=== PATIENT | female | born 1965 | race Caucasian/White ===

== ENCOUNTER → 2023-01-09 | Outpatient (CLI) | payer OTHER, SELFPAY ==
[2023-01-09 09:40] LABS: Erythrocyte Sedimentation Rate 1 mm/hr (0-30)
[2023-01-09 10:11] LABS: CRP < 2.90 mg/L (0.0-3.0)
== END | disposition home or self-care (01) ==
LOC: LAB 08:48
PROVIDERS: PCP Family Medicine
DX: H47.011 Ischemic optic neuropathy, right eye (principal)
CPT/HCPCS: 36415; 85652; 86140

== ENCOUNTER → 2025-02-06 | Outpatient (CLI) | payer BC, SELFPAY ==
[2025-02-06 17:55] LABS: Mucous, Urine 0 SEEN /hpf (<or=2+)
--- OUTSIDE RECORDS SUMMARY | 2025-02-06 17:56 | XMS RPT_ITS | CCD ---
Author Organization [facility] Care Team Providers Care Operator Weapon Locating Radar Name Role Phone Assessment, Health Risk Attending Unavaila ble Care Physician, No Primary Primary Care Unava ilable Assessment, Health Risk Attending Unavaila ble Care Physician, No Primary Primary Care Unava ilable Matteo Medel MD Primary Care Provider Matteo Medel MD Primary Care Provider Rchokristian INVESTMENT COUNSELOR.Rachelle SMITH Unavailable Domingo INVESTMENT COUNSELOR.Carlos SMITH Unavailable Tannhof INVESTMENT COUNSELOR.Rachelle SMITH Unavailable MATTEO MEDEL Primary Care Unavailable KRISSY MAHMOOD Attending Unavailable MATTEO MEDEL Primary Care Unavailable ILIANA CLARK Attending Unavailable SELF Referring Unavailable MATTEO MEDEL Primary Care Unavailable ILIANA CLARK Referring Unavailable MATTEO MEDEL Referring Unavailable MATTEO MEDEL Primary Care Unavailable GENESIS MENDES Referring Unavailable MATTEO MEDEL Attending Unavailable MATTEO MEDEL Primary Care Unavailable Allergies Allergy Classification Reported Allergen(s) Allergy Type Date of Onset Reaction(s) Facility (15 sources) Sulfonamides (Antibiotic); Translations: [SULFA (SULFONAMIDE ANTIBIOTICS)] Drug Allergy 03-06-2005 [facility] Work Phone: Medications Current Medications Medication Drug Class(es) Dates Sig (Normalized) Sig (Original) cephalexin 500 mg oral capsule (3 sources) Cephalosporin Antibacterial Start: 08-06-2024 End: 08-11-2024 take 1 capsule by mouth twice daily cephALEXin (KEFLEX) 500 mg capsule Take 1 capsule by mouth two times a day for 5 days. 10 capsule 08/06/2024 08/11/2024 Active Start: 11-25-2023 End: 12-02-2023 take 1 capsule by mouth twice daily cephALEXin (KEFLEX) 500 mg capsule Take 1 capsule by mouth two times a day for 7 days. 14 capsule 11/25/2023 12/02/2023 Active Loratadine (14 sources) LORATADINE ORAL Take by mouth. Active LORATADINE ORAL Take by mouth. 0 Active Comment on above: Take by mouth. 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 21 tablet 0 12/05/2022 12/11/2022 Active Comment on above: Follow dosing instru ctions, take with food. MULTIVITAMIN TAB (14 sources) Start: 2004 MULTIVITAMIN TAB Take one(1) tablet daily. 0 03/06/2005 Active Comment on above: Take one(1) tablet d aily. valACYclovir 500 mg oral tablet (6 sources) Herpesvirus Nucleoside Analog DNA Polymerase Inhibitor, Herpes Simplex Virus Nucleoside Analog DNA Polymerase Inhibitor, Herpes Zoster Virus Nucleoside Analog DNA Polymerase Inhibitor Start: 2022 End: 2024 take 1 tablet by mouth once daily valACYclovir (VALTREX) 500 mg tablet Indications: History of herpes genitalis Take 1 tablet by mouth once daily. 7 tablet 5 04/24/2023 04/23/2024 Active Comment on above: Take 1 tablet by jake th once daily. Completed/Discontinued Medications Medication Drug Class(es) Dates Sig (Normalized) Sig (Original) nitrofurantoin, macrocrystals 25 mg / nitrofurantoin, monohydrate 75 mg oral capsule (2 sources) Nitrofuran Antibacterial Start: 11-23-2023 End: 11-28-2023 take 1 capsule by mouth twice daily nitrofurantoin monohydrate and macrocrystal (MACROBID) 100 mg capsule Indications: Acute UTI Take 1 capsule by mouth two times a day for 5 days. 10 capsule 11/23/2023 11/25/2023 Discontinued Problems Active Problems Problem Classification Problem Date Documented Da te Episodic/Chronic Genitourinary symptoms and ill-defined conditions (1 source) Urgent desire to urinate; Translations: [Urgency of urination] 11-23-2023 Episodic Nonmalignant breast conditions (1 source) Breast finding ; Translations: [Dense breast tissue] 04-29-2024 Episodic Other circulatory disease (1 source) Elevated blood-pressure reading without diagnosis of hypertension; Translations: [Elevated blood-pressure reading, without diagnosis of hypertension] 12-05-2022 Episodic Other eye disorders (2 sources) 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; Translations: [Ischemic optic neuropathy, right eye] 12-05-2022 Chronic Other hereditary and degenerative nervous system conditions (1 source) Restless legs; Translations: [Restless legs syndrome] 12-16-2024 Chronic Other infections; including parasitic (2 sources) History of sexually transmitted disease; Translations: [Personal history of other infectious and parasitic diseases] 12-05-2022 Episodic Other screening for suspected conditions (not mental disorders or infectious disease) (7 sources) Patient encounter status; Translations: [Encounter for screening for lipoid disorders] 12-06-2023 Episodic Other upper respiratory disease (1 source) Seasonal allergy; Translations: [Other seasonal allergic rhinitis] 12-06-2023 Chronic Other upper respiratory disease (1 source) Seasonal allergic rhinitis; Translations: [Other seasonal allergic rhinitis] 12-16-2024 Chronic Residual codes; unclassified (1 source) Insomnia; Translations: [Insomnia, unspecified] 12-16-2024 Episodic Screening and history of mental health and substance abuse codes (2 sources) Encounter for screening for depression; Translations: [Encounter for screening examination for other mental health and behavioral disorders] Onset: 12-16-2024 Episodic Past or Other Problems Problem Classification Problem Date Documented Da te Episodic/Chronic Cancer of cervix (15 sources) Atypical squamous cells of undetermined significance on cervical Papanicolaou smear; Translations: [Atypical squamous cells of undetermined significance on cytologic smear of cervix (ASC-US)] Onset: 01-28-2018 01-29-2018 Episodic Other female genital disorders (14 sources) Lesion of cervix; Translations: [Noninflammatory disorder of cervix uteri, unspecified] Onset: 01-16-2018 01-16-2018 Episodic Urinary tract infections (3 sources) Acute urinary tract infection; Translations: [Urinary tract infection, site not specified] Onset: 08-06-2024 11-23-2023 Episodic Results Test Name Value Interpretation Reference Range Marilu Lind 12-16-2024 [facility] Office Visit (FAMPWS ) VAISHALI MCGEE ([id number]) 1965 F Date Time Provider Department 12/16/24 8:00 AM MATTEO MEDEL [facility] During your visit today, we recorded the following information about you: Pulse Respiration Blood pressure Weight 78/minute 16/minute 138/80 50.9 kg Height 1.422 m Matteo Medel MD 12/16/2024 9:04 AM Signed Chief Complaint Patient presents with: Physical Recording using Exchangery software for draft documentation of the visit was discussed with the patient/authorized scheduling representative; all questions welcomed and answered. Patient/authorized scheduling representative agreed to proceed HPI Vaishali Mcgee is a 59-year-old female presenting for Annual Wellness Visit. Vaishali denies any current health concerns. She reports reviewing her recent lab results and noting that some values were slightly above or below the normal range, but she does not find them concerning. She maintains a healthy diet, particularly in the summer when she has access to fresh produce from farmers' markets and her own garden. She is physically active, engaging in yard work and walking regularly. She has a membership at a local high school track and frequents [facility] and the [employer] for walking. She also participates in an exercise class on evenings. Vaishali retired after 34-35 years of service and now has more time for activities she enjoys, such as cooking and traveling. She recently visited her brothers in [place]. Her 28-year-old son has moved back home, which she appreciates for the help he provides around the house. She denies any chest pain, dyspnea, or breathing problems. She reports occasional insomnia and restless legs, which she attributes to her age and hormonal changes. She takes extra magnesium to help with these issues and has been eating bananas and cantaloupe to maintain her electrolyte balance. She denies any recent flu or colds, attributing her good health to taking elderberry, vitamin C, and practicing good hygiene. She manages seasonal allergies with loratadine. She declines flu and shingles vaccines. Declined Pneumonia vaccine and Flu vaccine. No bowel, Gi, or urinary concerns. Follows with [facility]. No chest pains, dizziness, or Shortness of Breath. Does not take any medications other than occ OTC supplements. Checks BP at home with readings running 108/71, 116/70/ Pulse in 70s. Past medical history, appointments, medications, allergies reviewed. 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 MULTIVITAMIN TAB Take one(1) tablet daily. No current facility-administered medications on file prior to visit. Social History SOCIAL HISTORY[1] EXAM: BP 138/80 Pulse 78 Resp 16 Ht 142.2 cm (4' 8") Wt 50.9 kg (112 lb 3.4 oz) LMP 07/09/2010 BMI 25.16 kg/m? General Appearance: Well appearing, alert, in no acute distress, well-hydrated, well nourished.. Lungs: Lungs clear to auscultation. No wheezing, rhonchi, rales.. Heart: RRR without murmur, gallop, or rubs. No ectopy. Health Maintenance List Shingrix Vaccine(1 of 2) Never done Depression Screening due on 12/05/2024 Anxiety Screening due on 12/05/2024 Mammogram Screening due on 04/29/2025 Influenza Vaccine(1) due on 09/29/2025 Pneumococcal Vaccine: 50+(1 of 1 - PCV) due on 12/16/2025 DTaP,Tdap,Td Vaccine(6 - Td or Tdap) due on 09/25/2027 Diabetes Screening due on 12/12/2027 Colorectal Cancer Screening due on 02/12/2028 Cervical Cancer Screening due on 04/24/2028 Lipid Screening due on 12/11/2029 RSV Vaccine(1 - 1-dose 75+ series) due on 2038 Hepatitis C Screening Completed HIV Screening Completed Data reviewed Appointment on 12/11/2024 Component Date Value Protein, To (more content not included)... Normal [facility] Comprehensive metabolic 2000 panelon 12-11-2024 Albumin [Mass/Vol] 4.3 g/dL Normal 3.9-4.9 [facility] Comment on above: Order Comment: Speci men Type: BLOOD SPECIMEN Ordering Facility: [facility] Address: [address] [place] [address] Performed By: #### 2 4331-1, 07838-0 #### [facility] CLIA [id number] [address] [place] [address] [place] ALP [Catalytic activity/Vol] 71 U/L Normal 34-123 [facility] Comment on above: Order Comment: Speci men Type: BLOOD SPECIMEN Ordering Facility: [facility] Address: [address] [place] [address] Performed By: #### 2 4331-1, 83377-7 #### [facility] CLIA [id number] [address] [place] [address] [place] ALT [Catalytic activity/Vol] 12 U/L Normal 7-38 [facility] Comment on above: Order Comment: Speci men Type: BLOOD SPECIMEN Ordering Facility: [facility] Address: [address] [place] [address] Performed By: #### 2 4331-1, 37118-5 #### [facility] CLIA [id number] [address] [place] [address] [place] Anion gap [Moles/Vol] 12 mmol/L Normal 8-15 [facility] Comment on above: Order Comment: Speci men Type: BLOOD SPECIMEN Ordering Facility: [facility] Address: [address] [place] [address] Performed By: #### 2 4331-1, 93426-0 #### [facility] CLIA [id number] [address] [place] [address] [place] AST [Catalytic activity/Vol] 18 U/L Normal 13-35 [facility] Comment on above: Order Comment: Speci men Type: BLOOD SPECIMEN Ordering Facility: [facility] Address: [address] [place] [address] Performed By: #### 2 4331-1, 22260-4 #### [facility] CLIA [id number] [address] [place] [address] [place] Bilirubin [Mass/Vol] 0.6 mg/dL Normal 0.2-1.3 [facility] Comment on above: Order Comment: Speci men Type: BLOOD SPECIMEN Ordering Facility: [facility] Address: [address] [place] [address] Performed By: #### 2 4331-1, 77594-6 #### [facility] CLIA [id number] [address] [place] [address] [place] Calcium [Mass/Vol] 9.2 mg/dL Normal 8.5-10.2 [facility] Comment on above: Order Comment: Speci men Type: BLOOD SPECIMEN Ordering Facility: [facility] Address: [address] [place] [address] Performed By: #### 2 4331-1, 86958-5 #### [facility] CLIA [id number] [address] [place], [place] [address] [place] Chloride [Moles/Vol] 96 mmol/L Low 98-107 [facility] Comment on above: Order Comment: Speci men Type: BLOOD SPECIMEN Ordering Facility: [facility] Address: [address] [place] [address] Performed By: #### 2 4331-1, 83314-9 #### [facility] CLIA [id number] [address] [place] [address] [place] CO2 [Moles/Vol] 23 mmol/L Normal 22-30 [facility] Comment on above: Order Comment: Speci men Type: BLOOD SPECIMEN Ordering Facility: [facility] Address: [address] [place] [address] Performed By: #### 2 4331-1, 52589-1 #### [facility] CLIA [id number] [address] [place] [address] [place] Creatinine [Mass/Vol] 0.76 mg/dL Normal 0.58-0.96 [facility] Comment on above: Order Comment: Speci men Type: BLOOD SPECIMEN Ordering Facility: [facility] Address: [address] [place] [address] Performed By: #### 2 4331-1, 89159-7 #### [facility] CLIA [id number] [address] [place] [address] [place] eGFRcr SerPlBld CKD-EPI 2020 89 mL/min/1.73m??? Normal >=60 [facility] Comment on above: Order Comment: Speci men Type: BLOOD SPECIMEN Ordering Facility: [facility] Address: [address] [place] [address] Result Comment: Rhonda mated Glomerular Filtration Rate (eGFR) is calculated using the 2020 CKD-EPI creatinine equation. This equation utilizes serum creatinine, sex, and age as parameters. The creatinine assay has traceable calibration to isotope dilution-mass spectrometry. Refer to KDIGO guidelines for clinical interpretation. In patients with unstable renal function, e.g. those with acute kidney injury, the eGFR may not accurately reflect actual GFR. Performed By: #### 2 4331-1, 99323-6 #### [facility] CLIA [id number] [address] [place] [address] [place] Glucose [Mass/Vol] 72 mg/dL Low 74-99 [facility] Comment on above: Order Comment: Speci men Type: BLOOD SPECIMEN Ordering Facility: [facility] Address: [address] [place] [address] Result Comment: The [place] Diabetes Association (ADA) provides guidance for cutoff values for fasting glucose and random glucose. The ADA defines fasting as no caloric intake for at least 8 hours. Fasting plasma glucose results between 100 to 125 mg/dL indicate increased risk for diabetes (prediabetes). Fasting plasma glucose results greater than or equal to 126 mg/dL meet the criteria for diagnosis of diabetes. In the absence of unequivocal hyperglycemia, results should be confirmed by repeat testing. In a patient with classic symptoms of hyperglycemia or hyperglycemic crisis, random plasma glucose results greater than or equal to 200 mg/dL meet the criteria for diagnosis of diabetes. Reference: Standards of Medical Care in Diabetes 2016, [place] Diabetes Association. Diabetes Care. 2016.39(Suppl 1). Performed By: #### 2 4331-1, 72131-3 #### [facility] CLIA [id number] [address] [place] [address] [place] Potassium [Moles/Vol] 3.8 mmol/L Normal 3.7-5.1 [facility] Comment on above: Order Comment: Speci men Type: BLOOD SPECIMEN Ordering Facility: [facility] Address: [address] [place] [address] Performed By: #### 2 4331-, #### [facility] CLIA [id number] [address] [place] [address] [place] Protein [Mass/Vol] 6.6 g/dL Normal 6.3-8.0 [facility] Comment on above: Order Comment: Miladi men Type: BLOOD SPECIMEN Ordering Facility: [facility] Address: [address] [place] [address] Performed By: #### 2 433-1, #### [facility] CLIA [id number] [address] [place], [place] [address] [place] Sodium [Moles/Vol] 131 mmol/L Low 136-144 [facility] Comment on above: Order Comment: Speci men Type: BLOOD SPECIMEN Ordering Facility: [facility] Address: [address] [place] [address] Performed By: #### 2 4331-1, 42912-1 #### [facility] CLIA [id number] [address] [place], [place] [address] [place] Urea nitrogen [Mass/Vol] 10 mg/dL Normal 7-21 [facility] Comment on above: Order Comment: Speci men Type: BLOOD SPECIMEN Ordering Facility: [facility] Address: [address] [place] [address] Performed By: #### 2 4331-1, #### [facility] CLIA [id number] [address] [place] [address] [place] Lipid 1996 panelon 5 Cholesterol [Mass/Vol] 198 mg/dL Normal <200 [facility] Comment on above: Order Comment: Speci men Type: BLOOD SPECIMEN Ordering Facility: [facility] Address: [address] [place] [address] Result Comment: <200 mg/dL, Desirable 200-239 mg/dL, Borderline high >239 mg/dL, High Performed By: #### 2 4331-1, 74368-3 #### [facility] CLIA [id number] [address] [place], [place] [address] [place] Cholesterol in HDL [Mass/Vol] 63 mg/dL Normal >39 [facility] Comment on above: Order Comment: Speci men Type: BLOOD SPECIMEN Ordering Facility: [facility] Address: [address] [place] [address] Result Comment: 40-5 9 mg/dL, Acceptable >59 mg/dL, High: Negative risk factor for coronary heart disease <40 mg/dL, Low: Positive risk factor for coronary heart disease Performed By: #### 2 4331-1, 19508-0 #### [facility] CLIA [id number] [address] [place] [address] [place] Cholesterol in LDL [Mass/Vol] 122 mg/dL High <100 [facility] Comment on above: Order Comment: Nikky desai Type: BLOOD SPECIMEN Ordering Facility: [facility] Address: [address] [place] [address] Result Comment: <100 mg/dL, Optimal 100-129 mg/dL, Near optimal/above optimal 130-159 mg/dL, Borderline high 160-189 mg/dL, High >189 mg/dL, Very high Secondary prevention optimal LDL Cholesterol levels are recommended to be <70 mg/dL LDL cholesterol is calculated using the Petersen-NIH equation. Performed By: #### 2 4331-1, 73942-0 #### [facility] CLIA [id number] [address] [place] [address] [place] [facility] Cholesterol in LDL/Cholesterol in HDL [Mass ratio] 1.94 {ratio} Normal <2.54 [facility] Comment on above: Order Comment: Nikky desai Type: BLOOD SPECIMEN Ordering Facility: [facility] Address: [address] [place] [address] Result Comment: Refe rence: 1. National Cholesterol Education Program ATP III Guideline At-A-Glance Quick Desk Reference: National Heart, Lung, and Blood [place]. National Institutes of Health. 2001: NIH Publication No. 01-3305. 2. An International Atherosclerosis Society position paper: global recommendations for the management of dyslipidemia: executive summary, Atherosclerosis. 2014: 232(2):410-413. Performed By: #### 2 4331-1, 48320-6 #### [facility] CLIA [id number] [address] [place] [address] [place] Cholesterol in VLDL [Mass/Vol] 13 mg/dL Normal <30 [facility] Comment on above: Order Comment: Nikky desai Type: BLOOD SPECIMEN Ordering Facility: [facility] Address: [address] [id number] Performed By: #### 2 4331-1, 87520-4 #### [facility] CLIA [id number] [address] [place] [address] [place] Cholesterol non HDL [Mass/Vol] 135 mg/dL High <130 [facility] Comment on above: Order Comment: Speci men Type: BLOOD SPECIMEN Ordering Facility: [facility] Address: [address] [place] [address] Result Comment: <130 mg/dL, Optimal 130-159 mg/dL, Near optimal/above optimal 160-189 mg/dL, Borderline high 190-219 mg/dL, High >219 mg/dL, Very high Secondary prevention optimal non HDL Cholesterol levels are recommended to be <100 mg/dL Performed By: #### 2 4331-1, #### [facility] CLIA [id number] [address] [place] [address] [place] Cholesterol.total/Ch olesterol in HDL [Mass ratio] 3.14 {ratio} Normal <5.10 [facility] Comment on above: Order Comment: Speci men Type: BLOOD SPECIMEN Ordering Facility: [facility] Address: [address] [place] [address] Performed By: #### 2 4331-1, #### [facility] CLIA [id number] [address] [place] [address] [place] FASTING TIME 12 hrs Normal [facility] Comment on above: Order Comment: Speci men Type: BLOOD SPECIMEN Ordering Facility: [facility] Address: [address] [place], [place] [id number] Performed By: #### 2 4331-1, #### [facility] CLIA [id number] [address] [place] [address] [place] Triglyceride [Mass/Vol] 74 mg/dL Normal <150 [facility] Comment on above: Order Comment: Speci men Type: BLOOD SPECIMEN Ordering Facility: [facility] Address: [address] [place] [address] Result Comment: <150 mg/dL, Normal 150-199 mg/dL, Borderline high 200-499 mg/dL, High >499 mg/dL, Very high Performed By: #### 2 4331-1, 76302-3 #### [facility] CLIA [id number] [address] [place] [address] OF [facility] Kiara 12-04-2024 [facility] ([facility]) VAISHALI MCGEE ([id number]) 1965 F Date Time Provider Department 12/04/24 MATTEO MEDEL [facility] During your visit today, we recorded the following information about you: Fabiola Shipman RN 12/04/2024 11:25 AM Signed Patient calls and states that she has physical scheduled with provider on 12/16/2024. Patient asking if provider want to place lab orders and if so when should labs be done? Please review and advise, ERROL Espinal Jesse, APRN.SARAH 12/05/2024 7:42 AM Signed Fasting labs ordered. Carlos Lane APRN.Janeen Thompson LPN 12/05/2024 9:05 AM Signed Patient notified. Allergies As of Date: 12/04/2024 Noted Allergy Reaction SULFA (SULFONAMIDE ANTIBIOTICS) 03/06/2005 4 - Hives Date Reviewed: 08/06/2024 Reviewed by: Priscila Sosa MA - Fully Assessed Reason for Visit: Lab Orders [1688] Primary Visit Diagnosis:Wellness examination [Z00.00] Order(s):COMPREHENSIV E METABOLIC PANEL [SQCMP] Order #: [id number] FUTURE LIPID PANEL, FASTING [SQLIPB] Order #: [id number] FUTURE Prescriptions as of 12/05/2024 - LORATADINE ORAL Take by mouth. - MULTIVITAMIN TAB Take one(1) tablet daily. Problem List As Of Date 12/04/2024 Noted Resolved Lesion of cervix [N88.9] 01/16/2018 Atypical squamous cells of undetermined signifi*01/28/2018 Encounter Status:Closed by JANEEN VAUGHAN on 12/05/24 [facility] Bacteria Ur Culton Bacteria identified Cx Nom (U) ORGANISM ID: 1 10,000 -<50,000 CFU/ml Escherichia coli ORGANISM ID: 1 (ESCHERICHIA COLI) ------ ANTIBIOTIC INTERPRETATION KARYNA STATUS REFERENCE RANGE ------ Ampicillin S <=2 F Susceptible <=8 , Intermediate >8 , Resistant >16 Cefazolin S <=4 F Susceptible 0-16 , Intermediate <0 or >16 , Resistant >16 For uncomplicated urinary tract infections, cefazolin results can be used to predict susceptibility or resistance to cephalexin. Ceftriaxone S <=1 F Susceptible <=1 , Intermediate >1 , Resistant >=4 Cefepime S <=1 F Susceptible <=2 , Susceptible-Dose Dependent >2 , Resistant >=16 Ertapenem S <=0.5 F Susceptible <=0.5 , Intermediate >.5 , Resistant >1 Meropenem S <=0.25 F Susceptible <=1 , Intermediate >1 , Resistant >2 Ampicillin/Sulbact S <=2 F Susceptible <=8 , Intermediate >8 , Resistant >16 Piperacillin/Tazobac S <=4 F Susceptible <16 , Susceptible-Dose Dependent >=16 , Resistant >=32 Gentamicin S <=1 F Susceptible <=2 , Intermediate >2 , Resistant >=8 Tobramycin S <=1 F Susceptible <4 , Intermediate >=4 , Resistant >=8 Trimeth sulfameth S <=20 F Susceptible <=40 , Resistant >40 Ciprofloxacin S <=0.25 F Susceptible <0.5 , Intermediate >=.5 , Resistant >=1 Nitrofurantoin S <=16 F Susceptible <=32 , Intermediate >32 , Resistant >64 Abnormal [facility] Comment on above: Performed By: #### 6 30-4 #### [facility] CLIA [id number] [address] [place] [address] OF [facility] CNOVon 08-06-2024 CNOV Office Visit (UCWSTR ) VAISHALI MCGEE ([id number]) 1965 F Date Time Provider Department 08/06/24 2:15 PM KRISSY MAHMOOD [facility] During your visit today, we recorded the following information about you: Temperature Pulse Respiration Blood pressure 97.9 degrees 80/minute 18/minute 145/87 Weight 54.7 kg Krissy Mahmood APRN.AWNING ERECTOR 08/06/2024 3:01 PM Signed [facility] Subjective Vaishali Leodan Arely is a 59 year old female. Patient presents with: Urinary Frequency: With urgency x2 days 59 year old female with PMH presents for possible UTI Acute onset 2 to 3 days ago +burning +urgency +frequency Denies vaginal bleeding Denies vaginal discharge Denies abdominal pain Denies N/V/D Recent coitus Mehdi concerns for STI Denies using homeopathic or OTC The history is provided by the patient. No global supply chain vice president was used. UTI This is a new problem. The current episode started 2 days ago. The problem occurs every urination. The problem has not changed since onset.The quality of the pain is described as burning. The pain is at a severity of 4/10. The pain is mild. She is Sexually active. There is No history of pyelonephritis. Associated symptoms include frequency and urgency. Pertinent negatives include no chills, no sweats, no nausea, no vomiting, no discharge, no hematuria, no hesitancy, no possible and no flank pain. She has tried nothing for the symptoms. Her past medical history does not include kidney stones, single kidney, urological procedure, recurrent UTIs, urinary stasis or catheterization. 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 MULTIVITAMIN TAB Take one(1) tablet daily. cephALEXin (KEFLEX) 500 mg capsule Take 1 capsule by mouth two times a day for 5 days. FAMILY HISTORY Problem Relation Age of Onset Emphysema Mother Heart Mother No Known Problems Father Ischemic Heart Disease Paternal Grandfather Diabetes Maternal Aunt Cancer Maternal Aunt Lung Cancer Heart Maternal Aunt Diabetes Maternal Uncle Cancer Maternal Uncle Social History Tobacco Use Smoking status: Never Smokeless tobacco: Never Vaping Use Vaping status: Never Used Substance Use Topics Alcohol use: Yes Comment: occasional Drug use: No Review of Systems Constitutional: Negative for activity change, appetite change, chills and diaphoresis. Eyes: Negative for pain, discharge, redness and itching. Respiratory: Negative for apnea, cough, choking and chest tightness. Cardiovascular: Negative for chest pain, palpitations and leg swelling. Gastrointestinal: Negative for abdominal pain, diarrhea, nausea and vomiting. Genitourinary: Positive for dysuria, frequency and urgency. Negative for flank pain, hematuria and hesitancy. Musculoskeletal: Negative for arthralgias, back pain, gait problem and joint swelling. Skin: Negative for color change, pallor, rash and wound. Allergic/Immunologic: Negative for environmental allergies, food allergies and immunocompromised state. Neurological: Negative for dizziness, facial asymmetry, light-headedness and headaches. Hematological: Negative for adenopathy. Does not bruise/bleed easily. Psychiatric/Behaviora l: Negative for agitation and behavioral problems. Objective BP 145/87 Pulse 80 Temp 36.6 ?C (97.9 ?F) Resp 18 Wt 54.7 kg (120 lb 9.5 oz) LMP 07/09/2010 SpO2 100% BMI 27.04 kg/m? Physical Exam Vitals and nursing note reviewed. Constitutional: General: She is not in acute distress. Appearance: Normal appearance. She is normal weight. She is not ill-appearing, toxic-appearing or diaphoretic. HENT: Head: Normocephalic and atraumatic. Right Ear: Ear canal and external ear normal. Left Ear: Ear canal and external ear normal. Nose: Nose normal. No congestion or rhinorrhea. Mouth/Throat: Mouth: Mucous membranes are moist. Pharynx: No oropharyngeal exudate or posterior oropharyngeal erythema. Eyes: General: Right eye: No discharge. Left eye: No discharge. Extraocular Movements: Extraocular movements intact. Conjunctiva/sclera: Conjunctivae normal. Pupils: Pupils are equal, round, and reactive to light. Cardiovascular: Rate and Rhythm: Normal r (more content not included)... Normal [facility] UA DIP, URINE (POC)on 2024 BILIRUBIN UA (POCT) Negative Negative [facility] CLARITY UA (POCT) Clear [facility] COLOR UA (POCT) Yellow [facility] GLUCOSE UA (POCT) Negative Negative mg/dL [facility] Hemoglobin Ql (U) Trace-intact Abnormal Negative [facility] Interpretation and review of laboratory results Abnormal [facility] KETONE UA (POCT) Negative Negative mg/dL [facility] LEUKOCYTES UA (POCT) Trace Abnormal Negative [facility] NITRITE UA (POCT) Negative Negative [facility] PH UA (POCT) 6.5 4.5 - 8.0 [facility] Protein Ql (U) Negative Negative mg/dL [facility] SPECIFIC GRAVITY UA (POCT) <=1.005 Abnormal 1.005 - 1.030 [facility] UROBILINOGEN UA (POCT) 0.2 Normal E.U./dL [facility] Location:[facility], [address] [place] [address], [place], [place], [id number] [place] [address] POINT OF CARE [facility] CNOVon 04-29-2024 CNOV Office Visit (OBGYWM ) VAISHALI MCGEE ([id number]) 1965 F Date Time Provider Department 04/29/24 9:30 AM ILIANA CLARK OBGYWPoli During your visit today, we recorded the following information about you: Blood pressure Weight Height 130/78 53.5 kg 1.422 m Iliana Clark APRN.CNP 04/29/2024 1:11 PM Signed Director Of Product Marketing offered: Patient declines. Tom is a 59 year old who presents for an annual gynecologic exam without complaints. Postmenopausal: Yes since age 51 HRT use: No Menses: no menses - postmenopausal Sexually active: Yes HPV vaccine: No Last pap smear: 04/24/2023 normal HPV: negative History of abnormal pap: Yes, Yes, 2018 - ASCUS, HPV neg cryo 2018 - benign colpo Dr Jovany Leigh: Yes: in her 20's Last mammogram: 2024 pending History of abnormal mammogram: No History of STDS: HSV possibly 2 outbreak past 2 years - only had a couple of lesions Patient concerns for STD exposure: No Time with current partner: 7 years Pain with intercourse: No Postcoital bleeding: No Hot flashes: Yes, random Documentation from previous visit of 04/24/2023 was copied and pasted, documentation has been reviewed and edited as necessary for today's visit. 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 RPR 1ST INGUN HRNA AGE 3 YRS/> INCARCERATED UNSPECIFIED ORAL SURGERY PROCEDURE, BY REPORT Angelica Teeth x2 Removed FAMILY HISTORY Problem Relation Age of Onset Emphysema Mother Heart Mother No Known Problems Father Ischemic Heart Disease Paternal Grandfather Diabetes Maternal Aunt Cancer Maternal Aunt Lung Cancer Heart Maternal Aunt Diabetes Maternal Uncle Cancer Maternal Uncle SOCIAL HISTORY Social History Tobacco Use Smoking status: Never Smokeless tobacco: Never Vaping Use Vaping status: Never Used Substance Use Topics Alcohol use: Yes Comment: occasional Drug use: No REVIEW OF SYSTEMS Abdomen: No abdominal pain, nausea, vomiting, diarrhea, or constipation. No bloating, early satiety, indigestion, or increased flatulence. Bladder: No dysuria, gross hematuria, urinary frequency, urinary urgency, or incontinence Breast: No breast lumps, nipple d/c, overlying skin changes, redness or skin retraction Allergies and current medication updated:Yes SENSITIVE EXAM: The sensitive examination was discussed with the Patient or Patient's Authorized Senior Strategy Manager. As applicable, any other physician, advance practice provider, medical student, or other health professional student that will be observing or involved in the sensitive examination for educational or training purposes was discussed with the Patient or Authorized Senior Strategy Manager. The Patient or Authorized Senior Strategy Manager has agreed to proceed with the sensitive examination. (Sensitive examination includes inspection and/or palpation of the breasts, pelvis, prostate and anorectal regions). EXAM: BP 130/78 Ht 4' 8" (1.42m) Wt 118 lb (53.5kg) LMP 07/09/2010 BMI 26.47 kg/(m2). GENERAL: pleasant, female in no apparent distress HEENT: Normocephalic, atraumatic, mucus membranes moist, and no lesions NECK: Supple, full range of motion, no adenopathy, and thyroid normal DERMATOLOGY: Normal, without lesions, non-icteric, and non-hirsute BREAST: soft, non-tender, symmetric, no dominant mass, normal nipple-areolar complex, no lymphadenopathy, and no nipple discharge CHEST: Normal inspiratory effort ABDOMEN: soft, non-tender, and no masses PELVIC: external genitalia normal, normal Bartholin's glands, urethra, Norge's glands, no vulvar lesions, good vaginal support, physiologic discharge present, normal appearing perineal body and perianal region, small raised friable area to right cervix as per usual - colpo benign 2018 and subsequent Pap normal. BIMANUAL: uterus normal size, shape and consistency, no adnexal masses, and non-tender RECTOVAGINAL: deferred. NEURO: alert and oriented x3,exam grossly non-focal EXTREMITIES: normal ASSESSMENT/PLAN: 1) Health maintenance: Pap/HPV up to date. HPV screening due 2026 Mammogram ordered Mammogram up to date Nutrition, exercise and routine health mainte (more content not included)... Normal [facility] MANNY SCREENING W TOMOon 04-29 MANNY SCREENING W CHRIS * * *Final Report* * * DATE OF EXAM: Apr 29 2024 9:14AM [id number] - MANNY SCREENING W CHRIS / PROCEDURE REASON: multiple diagnoses * * * * Physician Interpretation * * * * RESULT: [address] [address] [place] [address] #[id number] - MANNY SCREENING W CHRIS HISTORY: Patient is 59 years old and is seen for screening and is asymptomatic in both breasts. Patient states no personal history of breast cancer. Patient states no personal history of other cancers. COMPARISON STUDIES: The present examination has been compared to prior imaging studies dated 01/16/2018 (mammogram), 10/20/2019 (mammogram), 05/12/2021 (mammogram) and 04/24/2023 (mammogram). MAMMOGRAM TECHNIQUE: The study was acquired using full field digital technology and interpreted from soft copy. Digital Breast Tomosynthesis (DBT) images were obtained and used to assist in the interpretation of this examination. MAMMOGRAM FINDINGS: There are scattered areas of fibroglandular density. No suspicious masses, calcifications or other abnormalities are seen in either breast. There are no significant interval changes. IMPRESSION: There is no mammographic evidence of malignancy in either breast. Routine screening mammogram is recommended. Annual mammogram will be due in 1 year. BI-RADS Category 1: Negative RISK: Based on the Tyrer-Cuzick (TC) risk assessment model, this patient has a 6.0% lifetime risk of developing breast cancer, meaning they are at average risk for developing breast cancer. However, this is only an estimate based on available history provided on the patient's questionnaire. We encourage all patients to talk with their providers about these results, further recommendations for managing breast health, and appropriate supplemental screening options if the patient has dense breast tissue. Interpreting Radiologist: Genesis Palumbo M.D. Resident/Fellow: Fern Poole D.O. Electronically signed on: 04/30/2024 Property Management Assistant: GERALD Transcrijulio cesar Date/Time: Apr 29 2024 8:47A Dictated by: FERN POOLE DO This examination was interpreted and the report reviewed and electronically signed by: GENESIS PALUMBO MD on Apr 30 2024 1:16PM EST [id number] Normal [facility] UA DIP, URINE (POC)on 2023 BILIRUBIN UA (POCT) Negative Negative [facility] CLARITY UA (POCT) Cloudy [facility] COLOR UA (POCT) Other [facility] GLUCOSE UA (POCT) Negative Negative mg/dL [facility] Hemoglobin Ql (U) Large Abnormal Negative [facility] Interpretation and review of laboratory results Abnormal [facility] KETONE UA (POCT) Negative Negative mg/dL [facility] LEUKOCYTES UA (POCT) Small Abnormal Negative [facility] NITRITE UA (POCT) Negative Negative [facility] PH UA (POCT) 7.0 4.5 - 8.0 [facility] Protein Ql (U) 30 mg/dL Abnormal Negative [facility] SPECIFIC GRAVITY UA (POCT) 1.015 1.005 - 1.030 [facility] UROBILINOGEN UA (POCT) 0.2 Normal E.U./dL [facility] Location:[address], [place], [place], [id number] [place] [address] POINT OF CARE [facility] Glucoseon 09-28-2022 Glucose [Mass/Vol] 91 mg/dL Normal 74-106 [facility] Comment on above: Performed By: #### L 501.0100, L500.4100 #### [facility] [address] [place], [address] Lipid Profileon 09-28-2022 Cholesterol [Mass/Vol] 167 mg/dL Normal 200 [facility] Comment on above: Result Comment: <200 mg/dL Desirable 200-240 mg/dL Borderline >240 mg/dL High Risk Performed By: #### L 501.0100, L500.4100 #### [facility] [address] [place], [address] Cholesterol in HDL [Mass/Vol] 62 mg/dL Normal [facility] Comment on above: Result Comment: The drugs N-Acetylcysteine and Metamizole may falsely depress this assay. Reference Range HDL <40 mg/dL Low HDL Cholesterol HDL >or= 60 mg/dL High HDL Cholesterol Performed By: #### L 501.0100, L500.4100 #### [facility] [address] [place], [address] Cholesterol in LDL [Mass/Vol] 88 mg/dL Normal 0-130 [facility] Comment on above: Performed By: #### L 501.0100, L500.4100 #### [facility] [address] [place], [address] Cholesterol in VLDL [Mass/Vol] 17 mg/dL Normal 5-40 [facility] Comment on above: Performed By: #### L 501.0100, L500.4100 #### [facility] [address] [place], [address] Triglyceride [Mass/Vol] 86 mg/dL Normal [facility] Comment on above: Result Comment: The drugs N-Acetylcysteine and Metamizole may falsely depress this assay. Serum Triglycerides Reference Interval Normal <150 mg/dL Borderline high 150 - 199 mg/dL High 200 - 499 mg/dL Very High > or = 500 mg/dL Performed By: #### L 501.0100, L500.4100 #### [place] [facility] [address] [place], [address] Glucoseon 10-13-2021 Glucose [Mass/Vol] 98 mg/dL Normal 74-106 [facility] Comment on above: Performed By: #### L 501.0100, L500.4100 #### [facility] [address] [place], [address] Lipid Profileon 10-13-2021 Cholesterol [Mass/Vol] 196 mg/dL Normal 200 [facility] Comment on above: Result Comment: <200 mg/dL Desirable 200-240 mg/dL Borderline >240 mg/dL High Risk Performed By: #### L 501.0100, L500.4100 #### [facility] [address] [place], [address] Cholesterol in HDL [Mass/Vol] 55 mg/dL Normal [facility] Comment on above: Result Comment: The drugs N-Acetylcysteine and Metamizole may falsely depress this assay. Reference Range HDL <40 mg/dL Low HDL Cholesterol HDL >or= 60 mg/dL High HDL Cholesterol Performed By: #### L 501.0100, L500.4100 #### [facility] [address] [place], [address] Cholesterol in LDL [Mass/Vol] 126 mg/dL Normal 0-130 [facility] Comment on above: Performed By: #### L 501.0100, L500.4100 #### [facility] [address] [place], [address] Cholesterol in VLDL [Mass/Vol] 15 mg/dL Normal 5-40 [facility] Comment on above: Performed By: #### L 501.0100, L500.4100 #### [facility] [address] [place], [address] Triglyceride [Mass/Vol] 74 mg/dL Normal [facility] Comment on above: Result Comment: The drugs N-Acetylcysteine and Metamizole may falsely depress this assay. Serum Triglycerides Reference Interval Normal <150 mg/dL Borderline high 150 - 199 mg/dL High 200 - 499 mg/dL Very High > or = 500 mg/dL Performed By: #### L 501.0100, L500.4100 #### [facility] [address] [place], [address] Vital Signs Date Time Vital Sign Value Performing Clinician Faci lity 12-16-2024 08:06-0400 Body height 142.2 cm Matteo Medel MD Work Phone: [facility] 12-16-2024 08:06-0400 Body mass index (BMI) [Ratio] 25.16 kg/m2 Matteo Medel MD Work Phone: [facility] 12-16-2024 08:06-0400 Body weight 50.9 kg Matteo Medel MD Work Phone: [facility] 12-16-2024 08:06-0400 Diastolic blood pressure 80 mm[Hg] Matteo Medel MD Work Phone: [facility] 12-16-2024 08:06-0400 Heart rate 78 /min Matteo Medel MD Work Phone: [facility] 12-16-2024 08:06-0400 Respiratory rate 16 /min Matteo Medel MD Work Phone: [facility] 12-16-2024 08:06-0400 Systolic blood pressure 138 mm[Hg] Matteo Medel MD Work Phone: [facility] 08-06-2024 14:23-0400 Body mass index (BMI) [Ratio] 27.04 kg/m2 Krissy Mahmood INVESTMENT COUNSELOR.AWNING ERECTOR Work Phone: [facility] 08-06-2024 14:23-0400 Body temperature 97.9 [degF] Krissy Mahmood INVESTMENT COUNSELOR.AWNING ERECTOR Work Phone: [facility] 08-06-2024 14:23-0400 Body weight 54.7 kg Krissy Mahmood INVESTMENT COUNSELOR.AWNING ERECTOR Work Phone: [facility] 08-06-2024 14:23-0400 Diastolic blood pressure 87 mm[Hg] Krissy Mahmood INVESTMENT COUNSELOR.AWNING ERECTOR Work Phone: [facility] 08-06-2024 14:23-0400 Heart rate 80 /min Krissy Mahmood INVESTMENT COUNSELOR.AWNING ERECTOR Work Phone: [facility] 08-06-2024 14:23-0400 Respiratory rate 18 /min Krissy Mahmood INVESTMENT COUNSELOR.AWNING ERECTOR Work Phone: [facility] 08-06-2024 14:23-0400 SaO2% (BldA) [Mass fraction] 100 % Krissy Mahmood INVESTMENT COUNSELOR.AWNING ERECTOR Work Phone: [facility] 08-06-2024 14:23-0400 Systolic blood pressure 145 mm[Hg] Krissy Mahmood INVESTMENT COUNSELOR.AWNING ERECTOR Work Phone: [facility] 04-29-2024 09:33-0500 Body height 142.2 cm Iliana Clark INVESTMENT COUNSELOR.AWNING ERECTOR Work Phone: [facility] 04-29-2024 09:33-0500 Body mass index (BMI) [Ratio] 26.46 kg/m2 Iliana Clark INVESTMENT COUNSELOR.AWNING ERECTOR Work Phone: [facility] 04-29-2024 09:33-0500 Body weight 53.52 kg Iliana Clark APRN.AWNING ERECTOR Work Phone: [facility] 04-29-2024 09:33-0500 Diastolic blood pressure 78 mm[Hg] Iliana Clark INVESTMENT COUNSELOR.AWNING ERECTOR Work Phone: [facility] 04-29-2024 09:33-0500 Systolic blood pressure 130 mm[Hg] Iliana Clark APRN.AWNING ERECTOR Work Phone: [facility] 12-06-2023 06:50-0400 Body height 142.2 cm Rachelle Bera INVESTMENT COUNSELOR.AWNING ERECTOR Work Phone: [facility] 12-06-2023 06:50-0400 Body mass index (BMI) [Ratio] 26.2 kg/m2 Rachelle Tannhof INVESTMENT COUNSELOR.AWNING ERECTOR Work Phone: [facility] 12-06-2023 06:50-0400 Body weight 53 kg Rachelle Tannhof INVESTMENT COUNSELOR.AWNING ERECTOR Work Phone: [facility] 12-06-2023 06:50-0400 Diastolic blood pressure 69 mm[Hg] Rachelle Tannhof INVESTMENT COUNSELOR.AWNING ERECTOR Work Phone: [facility] 12-06-2023 06:50-0400 Heart rate 69 /min Rachelle Tannhof INVESTMENT COUNSELOR.AWNING ERECTOR Work Phone: [facility] 12-06-2023 06:50-0400 Respiratory rate 16 /min Rachelle Tannhof INVESTMENT COUNSELOR.AWNING ERECTOR Work Phone: [facility] 12-06-2023 06:50-0400 SaO2% (BldA) [Mass fraction] 100 % Rachelle Tannhof INVESTMENT COUNSELOR.AWNING ERECTOR Work Phone: [facility] 12-06-2023 06:50-0400 Systolic blood pressure 100 mm[Hg] Rachelle Tannhof INVESTMENT COUNSELOR.AWNING ERECTOR Work Phone: [facility] 11-23-2023 13:05-0400 Body mass index (BMI) [Ratio] 26.48 kg/m2 Jai Moomaw INVESTMENT COUNSELOR.AWNING ERECTOR Work Phone: [facility] 11-23-2023 13:05-0400 Body temperature 97.39 [degF] Jai Moomaw INVESTMENT COUNSELOR.AWNING ERECTOR Work Phone: [facility] 11-23-2023 13:05-0400 Body weight 54 kg Jai Moomaw INVESTMENT COUNSELOR.AWNING ERECTOR Work Phone: [facility] 11-23-2023 13:05-0400 Diastolic blood pressure 88 mm[Hg] Jai Moomaw INVESTMENT COUNSELOR.AWNING ERECTOR Work Phone: [facility] 11-23-2023 13:05-0400 Heart rate 80 /min Jai Moomaw INVESTMENT COUNSELOR.AWNING ERECTOR Work Phone: [facility] 11-23-2023 13:05-0400 Respiratory rate 19 /min Jai Moomaw INVESTMENT COUNSELOR.AWNING ERECTOR Work Phone: [facility] 11-23-2023 13:05-0400 SaO2% (BldA) [Mass fraction] 98 % Jai Moomaw INVESTMENT COUNSELOR.AWNING ERECTOR Work Phone: [facility] 11-23-2023 13:05-0400 Systolic blood pressure 142 mm[Hg] Jai Moomaw INVESTMENT COUNSELOR.AWNING ERECTOR Work Phone: [facility] 12-05-2022 06:54-0400 Body height 141 cm Rachellesandie Tatumhof INVESTMENT COUNSELOR.AWNING ERECTOR Work Phone: [facility] 12-05-2022 06:54-0400 Body weight 53.98 kg Rachellesandie Tatumhof INVESTMENT COUNSELOR.AWNING ERECTOR Work Phone: [facility] 12-05-2022 06:54-0400 Diastolic blood pressure 90 mm[Hg] Rachelle Tatumhof INVESTMENT COUNSELOR.AWNING ERECTOR Work Phone: [facility] 12-05-2022 06:54-0400 Heart rate 67 /min Rachelle Tannhof INVESTMENT COUNSELOR.AWNING ERECTOR Work Phone: [facility] 12-05-2022 06:54-0400 Respiratory rate 16 /min Rachelle Tatumhof INVESTMENT COUNSELOR.AWNING ERECTOR Work Phone: [facility] 12-05-2022 06:54-0400 SaO2% (BldA) [Mass fraction] 100 % Rachelle Tatumhof INVESTMENT COUNSELOR.AWNING ERECTOR Work Phone: [facility] 12-05-2022 06:54-0400 Systolic blood pressure 130 mm[Hg] Rachelle Tatumhof INVESTMENT COUNSELOR.AWNING ERECTOR Work Phone: [facility] Encounters Encounter Date Encounter Type Care Provider Facility Start: 12-16-2024 End: 12-16-2024 Patient encounter status Matteo Medel MD Work Phone: [facility] Work Phone: Start: 12-16-2024 End: 12-16-2024 Periodic preventive med est patient 40-64yrs Matteo Medel MD Work Phone: [facility] Comment on above: Wellness examination (Primary Dx); Screening for depression; Encounter for screening examination for other mental health and behavioral disorders; Restless legs syndrome; Insomnia, unspecified type; Seasonal allergic rhinitis, unspecified trigger Start: 12-16-2024 End: 12-16-2024 ambulatory GENESIS PODLOGAR Facility:[facility] Start: 12-11-2024 End: 12-11-2024 ambulatory [facility] Facility:[facility] Start: 12-11-2024 Encounter for genera l adult medical examination without abnormal findings MATTEO MEDEL [facility] Start: 12-04-2024 End: 12-05-2024 Patient encounter status Matteo Medel MD Work Phone: [facility] Work Phone: Start: 12-04-2024 End: 12-05-2024 Telephone encounter Matteo Medel MD Work Phone: [facility] [place] Comment on above: Lab Orders Start: 08-07-2024 End: 08-08-2024 Follow-up encounter Krissy Mahmood APRN.AWNING ERECTOR Work Phone: [facility] Start: 08-06-2024 End: 08-06-2024 Patient encounter procedure Krissy Mahmood APRN.AWNING ERECTOR Work Phone: [facility] Comment on above: Acute cystitis with hematuria (Primary Dx) Start: 08-06-2024 End: 08-06-2024 ambulatory [facility] Facility:[facility] Start: 04-29-2024 End: 04-29-2024 Patient encounter procedure Iliana Clark APRN.AWNING ERECTOR Work Phone: OB/Gynecology Comment on above: Encounter for gyneco logical examination (general) (routine) without abnormal findings (Primary Dx); Encounter for screening mammogram for breast cancer Start: 04-29-2024 End: 04-29-2024 ambulatory [facility] Facility:[facility] Start: 04-29-2024 End: 04-29-2024 Patient encounter status Iliana Clark APRN.AWNING ERECTOR Work Phone: [facility] Start: 04-29-2024 End: 04-29-2024 Subsequent hospital visit by physician Screen Mammo [facility] Comment on above: Encounter for gyneco logical examination with abnormal finding [Z01.411] Start: 12-10-2023 End: 12-10-2023 Telephone encounter Rachelle Bear APRN.CNP Work Phone: [facility] [place] Comment on above: Results (Labs ) Start: 12-06-2023 End: 12-06-2023 Patient encounter procedure Rachelle Bear APRN.SARAH Work Phone: [facility] [place] Comment on above: Wellness examination (Primary Dx); Seasonal allergies; 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; History of herpes genitalis; Atypical squamous cells of undetermined significance (ASCUS) on Papanicolaou smear of cervix; Screening for depression; Encounter for screening examination for other mental health and behavioral disorders; Screening cholesterol level Start: 12-06-2023 End: 12-06-2023 Patient encounter status Rachelle Bear APRN.CNP Work Phone: [facility] Work Phone: Start: 11-25-2023 End: 11-25-2023 Telephone encounter Harley Stewart APRN.CNP Work Phone: [facility] Comment on above: Results Start: 11-23-2023 End: 11-23-2023 Patient encounter procedure Jai Soria APRN.CNP Work Phone: [facility] Comment on above: Urgency of urination (Primary Dx); Acute UTI Start: 12-05-2022 Telephone encounter Rachelle up APRN.CNP Work Phone: [facility] [place] Comment on above: Patient Update Start: 12-05-2022 End: 12-05-2022 Patient encounter procedure Rachelle Bear APRN.CNP Work Phone: [facility] [place] Comment on above: Wellness examination (Primary Dx); 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; Elevated blood pressure reading without diagnosis of hypertension; History of herpes genitalis Start: 12-05-2022 End: 12-05-2022 Patient encounter status Rachelle Bear INVESTMENT COUNSELOR.AWNING ERECTOR Work Phone: [facility] Work Phone: Start: 12-02-2022 ambulatory Emmanuelle Patrick RN NURS E SUBSTANCE ABUSE CLINICIAN Comment on above: Information Start: 12-01-2022 Telephone encounter Matteo mast MD Work Phone: [facility] [place] Comment on above: Patient Question Start: 09-28-2022 ambulatory Health Risk Assessment Facility:[facility] Start: 10-13-2021 ambulatory Health Risk Assessment Facility:[facility] Procedures Date Procedure Procedure Detail Performing Clinician Start: 12-16-2024 Adult depression scr eening assessment Matteo Medel MD Work Phone: Start: 12-11-2024 Lipid 1996 panel - S flor or Plasma Matteo Medel MD Work Phone: Start: 08-06-2024 Urnls dip stick/tabl et rgnt auto w/o microscopy Krissy Mahmood INVESTMENT COUNSELOR.AWNING ERECTOR Work Phone: Start: 12-06-2023 Adult depression scr eening assessment Rachelel Rcmarciakristian INVESTMENT COUNSELOR.AWNING ERECTOR Work Phone: Start: 12-06-2023 Lipid 1996 panel - S flor or Plasma Rachelle Marshallkristian INVESTMENT COUNSELOR.AWNING ERECTOR Work Phone: Start: 11-23-2023 Urnls dip stick/tabl et rgnt auto w/o microscopy Freddy Corbin MD Work Phone: Start: 05-12-2021 Mammography Emmanuelle Patrick RN Start: 10-12-2020 Lipid 1996 panel - S flor or Plasma Jai Soria INVESTMENT COUNSELOR.AWNING ERECTOR Work Phone: Start: 02-11-2018 Colonoscopy Emmanuelle Patrick RN Plan of Treatment Date Care Activity Detail Author Start: 2038 RSV Vaccine (1 - 1-d ose 75+ series) RSV Vaccine (1 - 1-dose 75+ series) [facility] Start: 12-11-2029 Lipid panel Lipid Screening [facility] Start: 12-05-2028 Lipid panel Lipid Screening [facility] Start: 04-24-2028 Screening for malign ant neoplasm of cervix Cervical Cancer Screening [facility] Start: 02-12-2028 Colonoscopy COLONOSCOPY [facility] Start: 02-12-2028 COLORECTAL CANCER SCREENING COLORECTAL CANCER SCREENING [facility] Start: 02-12-2028 Screening for malign ant neoplasm of colon [facility] Start: 12-12-2027 Diabetes Screening Diabetes Screenin g [facility] Start: 09-25-2027 Urine microalbumin profile [facility] Start: 12-05-2026 Diabetes Screening Diabetes Screenin g [facility] Start: 04-13-2026 HPV TESTING HPV TESTING [facility] Start: 04-13-2026 PAP TESTING PAP TESTING [facility] Start: 12-16-2025 Anxiety Screening Anxiety Screening [facility] Start: 12-16-2025 Depression Screening Depression Scre ening [facility] Start: 12-16-2025 Pneumococcal Vaccine : 50+ (1 of 1 - PCV) Pneumococcal Vaccine: 50+ (1 of 1 - PCV) [facility] Comment on above: Postponed from 04/14 (Declined at this time) Start: 10-12-2025 Lipid panel Lipid Screening [facility] Start: 10-12-2025 LIPID SCREEN LIPID SCREEN [facility] Start: 09-29-2025 Influenza vaccination Influenza Vacc ine (#1) [facility] Comment on above: Postponed from 12/01 (Declined at this time) Start: 05-13-2025 End: 05-13-2025 Patient encounter procedure Mammogram Comment on above: Encounter for screen ing mammogram for breast cancer [Z12.31] Annual Start: 05-01-2025 End: 05-01-2025 Patient encounter procedure Mammogram Comment on above: chris screening mammo graphy annual Start: 04-29-2025 Screening for malign ant neoplasm of breast Mammogram Screening [facility] Start: 12-16-2024 End: 12-16-2024 Patient encounter procedure 12/16/2024 8:00 AM EDT Office [facility] [address] [place] [address] Matteo Medel MD [address] [place] [id number] physical [facility] Comment on above: physical Start: 12-08-2024 End: 12-08-2024 Patient encounter procedure 12/08/2024 7:20 AM EDT Office [facility] [address] [place] [address] Rachelle Bear APRN.AWNING ERECTOR [address] [place] [address] physical [facility] [place] Comment on above: physical Start: 12-05-2024 Anxiety Screening Anxiety Screening [facility] Start: 12-05-2024 End: 03-06-2025 Comprehensive metabolic 2000 panel - Serum or Plasma COMPREHENSIVE METABOLIC PANEL Lab Routine Wellness examination Expected: 12/05/2024, Expires: 03/06/2025 [facility] Work Phone: Comment on above: Expected: 12/05/2024 , Expires: 03/06/2025 Start: 12-05-2024 Covid-19 Vaccine ( season) Covid-19 Vaccine ( season) [facility] Comment on above: Postponed from 12/01 (Declined at this time) Start: 12-05-2024 Covid-19 Vaccine ( season) Covid-19 Vaccine ( season) [facility] Comment on above: Postponed from 12/01 (Declined at this time) Start: 12-05-2024 Depression Screening Depression Scre ening [facility] Start: 12-05-2024 End: 03-06-2025 Lipid 1996 panel - Serum or Plasma LIPID PANEL, FASTING Lab Routine Wellness examination Expected: 12/05/2024, Expires: 03/06/2025 [facility] Comment on above: Expected: 12/05/2024 , Expires: 03/06/2025 Start: 12-05-2024 RSV Vaccine (1 - 1-d ose 60+ series) RSV Vaccine (1 - 1-dose 60+ series) [facility] Comment on above: Postponed from 04/14 (Declined at this time) Start: 12-01-2024 Influenza vaccination [facility] Start: 09-29-2024 Influenza vaccination Influenza Vacc ine (#1) [facility] Comment on above: Postponed from 12/01 (Declined at this time) Start: 04-29-2024 End: 04-29-2024 Patient encounter procedure Mammogram Comment on above: MANNY SCREENING W CHRIS Annual exam/pap Start: 04-24-2024 Screening for malign ant neoplasm of breast Mammogram Screening [facility] Start: 12-06-2023 End: 03-06-2024 Comprehensive metabolic 2000 panel - Serum or Plasma [facility] Work Phone: Comment on above: Expected: 12/06/2023 , Expires: 03/06/2024 Start: 12-06-2023 COVID-19 VACCINE (#1) COVID-19 VACCI NE (#1) [facility] Comment on above: Postponed from 10/12 (Declined at this time) Start: 12-06-2023 Covid-19 Vaccine ( season) Covid-19 Vaccine ( season) [facility] Comment on above: Postponed from 12/01 (Declined at this time) Start: 12-06-2023 End: 03-06-2024 Lipid 1996 panel - Serum or Plasma [facility] Comment on above: Expected: 12/06/2023 , Expires: 03/06/2024 Start: 12-06-2023 SHINGRIX VACCINE (1 of 2) SHINGRIX VACCINE (1 of 2) [facility] Comment on above: Postponed from 04/14 (Declined at this time) Start: 12-06-2023 End: 12-06-2023 Patient encounter procedure 12/06/2023 7:00 AM EDT Office Visit [facility] [place] [address] [facility] [place] [id number] Rachelle Bear, MARTHA.AWNING ERECTOR [address] [facility] [place] [id number] Annual Wellness [facility] Comment on above: Annual Wellness Start: 12-02-2023 Influenza vaccination Influenza Vacc ine (#1) [facility] Start: 10-13-2023 DIABETES SCREEN DIABETES SCREEN [facility] Start: 10-13-2023 Diabetes Screening Diabetes Screenin g [facility] Start: 09-30-2023 Influenza vaccination INFLUENZA (#1) [facility] Comment on above: Postponed from 12/01 (Declined at this time) Start: 2023 RSV Vaccine (1 - 1-d ose 60+ series) RSV Vaccine (1 - 1-dose 60+ series) [facility] Start: 12-01-2022 Influenza vaccination INFLUENZA (#1) [facility] Start: 05-12-2022 Mammography MAMMOGRAM [facility] Start: 04-02-2022 DEPRESSION ASSESSMENT DEPRESSION ASS ESSMENT [facility] Start: 2013 Pneumococcal Vaccine : 50+ (1 of 1 - PCV) Pneumococcal Vaccine: 50+ (1 of 1 - PCV) [facility] Start: 2013 SHINGRIX VACCINE (1 of 2) SHINGRIX VACCINE (1 of 2) [facility] Start: 2008 COLOGUARD (FIT-DNA) COLOGUARD (FIT-D NA) [facility] Start: [address] COLONOGRAPHY [facility] Start: 2008 FECAL OCCULT BLOOD FECAL OCCULT BLOO D [facility] Start: 2008 Screening for malign ant neoplasm of colon [facility] Start: 2008 SIGMOIDOSCOPY SIGMOIDOSCOPY [facility] Start: 1981 Anxiety Screening Anxiety Screening [facility] Start: 1981 Depression Screening Depression Scre ening [facility] Start: 1963 COVID-19 VACCINE (#1) COVID-19 VACCI NE (#1) [facility] Bacteria identified in Urine by Culture URINE CULTURE Microbiology Routine Urgency of urination Ordered: 11/23/2023 [facility] Work Phone: Comment on above: Ordered: 11/23/2023 Bacteria identified in Urine by Culture BACTERIAL CULTURE, URINE Microbiology Routine Acute cystitis with hematuria 08/06/2024 2:54 PM EDT [facility] Work Phone: DBT Breast - bilater al screening MANNY SCREENING W CHRIS Radiology Routine Encounter for gynecological examination with abnormal finding Encounter for screening mammogram for breast cancer Dense breast tissue 04/29/2024 9:14 AM EST [facility] Work Phone: End: 05-29-2025 DBT Breast - bilateral screening MANNY SCREENING W CHRIS Radiology Routine Encounter for screening mammogram for breast cancer 1 Occurrences starting 04/29/2024 until 05/29/2025 [facility] Work Phone: Comment on above: 1 Occurrences starti ng 04/29/2024 until 05/29/2025 [facility] Immunizations Immunization Date Immunization Notes Care Provider Inna cook 07-08-1993 DTP-Haemophilus influenzae type b conjugate vaccine Emmanuelle Ongiovanna [facility] 08-02-1968 DTP-Haemophilus influenzae type b conjugate vaccine Emmanuelle Onalberts RN [facility] 08-02-1968 trivalent poliovirus vaccine, live, oral Emmanuelle Ondus RN [facility] 08-02-1968 vaccinia (smallpox) vaccine, diluted Emmanuelle Ondus RN [facility] 05-03-1964 vaccinia (smallpox) vaccine, diluted Emmanuelle Ondus [facility] 04-05-1964 measles virus vaccine Emmanuelle Onalbert s [facility] 1965 trivalent poliovirus vaccine, live, oral Emmanuelle Ondus RN [facility] 1965 trivalent poliovirus vaccine, live, oral Emmanuelle Ondus RN [facility] 1963 trivalent poliovirus vaccine, live, oral Emmanuelle Ondus RN [facility] 1965 DTP-Haemophilus influenzae type b conjugate vaccine Emmanuelle Onalberts [facility] 1965 DTP-Haemophilus influenzae type b conjugate vaccine Emmanuelle Onalberts [facility] Payers Date Payer Category Payer [facility] OMID CANO [facility] TONY [id number] 2023 Unknown JANRUDY OMID WARD CANO O TONY [id number] 2023-Present [phone] [address] [place] [address] O [id number] 2023 Unknown [id number] 2021 Self-pay 2013 Private Health Insurance [facility] CHOICE PLUS [id number] 2013-Present [phone] [address] [address] [place] [address] O [id number] Unknown [id number] Unknown [id number] Social History Date Type Detail Facility Start: 12-05-2022 Tobacco smoking stat [facility] Never smoked tobacco [facility] Start: 06-14-2021 End: 12-16-2024 Alcohol intake Current drinker of alcohol (finding) [facility] Start: 06-14-2021 End: 12-05-2022 History of Social function [facility] Start: 06-14-2021 End: 12-05-2022 Tobacco use panel [facility] Start: 03-03-2012 Adult Depression Screening Assessment 0 [facility] Start: 04-13-2021 [facility] Start: 1965 Sex Assigned At Not on file [facility] Start: 12-05-2022 Tobacco use and exposure Smoke less tobacco non-user [facility] Clinical Notes 12-01-2022 to 12-16-2024 Patient InstructionsMatteo Medel MD - 12/16/2024 8:00 AM EDTTelephone Encounter - Janeen Vaughan LPN - 12/05/2024 9:05 AM EDTTelephone Encounter - Janeen Vaughan LPN - 12/05/2024 9:05 AM EDT Note Date & Type Note Facility 12-16-2024 Instructions Fern Landry MA - 12/16/2024 8:12 AM EDT Providers taking Dr. Medel's Patients when he retires in Jan. Dr. Mary Huynh Please call in to establish care with one of the providers list above. documented in this encounter [facility] 12-16-2024 History of Present illness Narrative Chief Complaint Patient presents with: Physical Recording using Exchangery software for draft documentation of the visit was discussed with the patient/authorized scheduling representative; all questions welcomed and answered. Patient/authorized scheduling representative agreed to proceed HPI Vaishali Mcgee is a 59-year-old female presenting for Annual Wellness Visit. Vaishali denies any current health concerns. She reports reviewing her recent lab results and noting that some values were slightly above or below the normal range, but she does not find them concerning. She maintains a healthy diet, particularly in the summer when she has access to fresh produce from farmers' markets and her own garden. She is physically active, engaging in yard work and walking regularly. She has a membership at a local high school track and frequents [facility] and the [employer] for walking. She also participates in an exercise class on evenings. Vaishali retired after 34-35 years of service and now has more time for activities she enjoys, such as cooking and traveling. She recently visited her brothers in [place]. Her 28-year-old son has moved back home, which she appreciates for the help he provides around the house. She denies any chest pain, dyspnea, or breathing problems. She reports occasional insomnia and restless legs, which she attributes to her age and hormonal changes. She takes extra magnesium to help with these issues and has been eating bananas and cantaloupe to maintain her electrolyte balance. She denies any recent flu or colds, attributing her good health to taking elderberry, vitamin C, and practicing good hygiene. She manages seasonal allergies with loratadine. She declines flu and shingles vaccines. Declined Pneumonia vaccine and Flu vaccine. No bowel, Gi, or urinary concerns. Follows with [facility]. No chest pains, dizziness, or Shortness of Breath. Does not take any medications other than occ OTC supplements. Checks BP at home with readings running 108/71, 116/70/ Pulse in 70s. Past medical history, appointments, medications, allergies reviewed. 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 MULTIVITAMIN TAB Take one(1) tablet daily. No current facility-administered medications on file prior to visit. Social History SOCIAL HISTORY[1] EXAM: BP 138/80 Pulse 78 Resp 16 Ht 142.2 cm (4' 8") Wt 50.9 kg (112 lb 3.4 oz) LMP 07/09/2010 BMI 25.16 kg/m General Appearance: Well appearing, alert, in no acute distress, well-hydrated, well nourished.. Lungs: Lungs clear to auscultation. No wheezing, rhonchi, rales.. Heart: RRR without murmur, gallop, or rubs. No ectopy. Health Maintenance List Shingrix Vaccine(1 of 2) Never done Depression Screening due on 12/05/2024 Anxiety Screening due on 12/05/2024 Mammogram Screening due on 04/29/2025 Influenza Vaccine(1) due on 09/29/2025 Pneumococcal Vaccine: 50+(1 of 1 - PCV) due on 12/16/2025 DTaP,Tdap,Td Vaccine(6 - Td or Tdap) due on 09/25/2027 Diabetes Screening due on 12/12/2027 Colorectal Cancer Screening due on 02/12/2028 Cervical Cancer Screening due on 04/24/2028 Lipid Screening due on 12/11/2029 RSV Vaccine(1 - 1-dose 75+ series) due on 2038 Hepatitis C Screening Completed HIV Screening Completed Data reviewed Appointment on 12/11/2024 Component Date Value Protein, Total 12/11/2024 6.6 Albumin 12/11/2024 4.3 Calcium, Total 12/11/2024 9.2 Bilirubin, Total 12/11/2024 0.6 Alkaline Phosphatase 12/11/2024 71 AST 12/11/2024 18 ALT 12/11/2024 12 Glucose 12/11/2024 72 (L) BUN 12/11/2024 10 Creatinine 12/11/2024 0.76 Sodium 12/11/2024 131 (L) Potassium 12/11/2024 3.8 Chloride 12/11/2024 96 (L) CO2 12/11/2024 23 Anion Gap 12/11/2024 12 Estimated Glomerular Khang* 12/11/2024 89 Cholesterol, Total 12/11/2024 198 Triglyceride 12/11/2024 74 HDL Cholesterol 12/11/2024 63 LDL Cholesterol, Calcula* 12/11/2024 122 (H) Non HDL Cholesterol 12/11/2024 135 (H) VLDL Cholesterol 12/11/2024 13 TC:HDL Ratio 12/11/2024 3.14 LDL:HDL Ratio 12/11/2024 1.94 Fasting Time 12/11/2024 12 1. Wellness examination (Z00.00) Annual wellness exam completed; reviewed recent lab results and overall health status. - Reviewed lab results: total cholesterol 198 mg/dL, HDL 68, LDL 122 mg/dL, triglycerides normal, glucose and sodium slightly low but not concerning. - Encouraged continuation of healthy diet and regular physical activity. - Discussed flu and shingles vaccines; patient declined both. - Provided options for new primary care provider for next year. 2. Restless legs syndrome (G25.81) 3. Insomnia, unspecified type (G47.00) Patient reports chronic insomnia and restless legs syndrome; currently taking magnesium supplements and increasing dietary potassium. - Advised evening stretching to help alleviate symptoms. 4. Seasonal allergic rhinitis, unspecified trigger (J30.2) Seasonal allergies well-controlled with loratadine. - Continue current management with loratadine as needed. 5. Screening for depression (Z13.31) 6. Encounter for screening examination for other mental health and behavioral disorders (Z13.39) I agree with the Chief Complaint, ROS, and Past Histories independently gathered by the clinical client support coordinator and the remaining scribed note accurately describes my personal service to the patient. Follow up in 1 year Matteo Medel MD The documentation for this note was completed by Fern Landry MA acting as scribe for Matteo Medel MD. December 16, 2024 8:10 AM. Fern Landry MA [1] Social History Tobacco Use Smoking status: Never Smokeless tobacco: Never Vaping Use Vaping status: Never Used Substance Use Topics Alcohol use: Yes Comment: occasional Drug use: No documented in this encounter [facility] 12-16-2024 Note HNO ID: [id number] Author: MATTEO MEDEL MD Service: ? Author Type: Physician Type: Progress Notes Filed: 12/16/2024 09:04 Note Text: Chief Complaint Patient presents with: Physical Recording using [employer] software for draft documentation of the visit was discussed with the patient/authorized scheduling representative; all questions welcomed and answered. Patient/authorized scheduling representative agreed to proceed HPI Vaishali Mcgee is a 59-year-old female presenting for Annual Wellness Visit. Vaishali denies any current health concerns. She reports reviewing her recent lab results and noting that some values were slightly above or below the normal range, but she does not find them concerning. She maintains a healthy diet, particularly in the summer when she has access to fresh produce from farmers' markets and her own garden. She is physically active, engaging in yard work and walking regularly. She has a membership at a local [employer] and frequents [employer] and [employer] for walking. She also participates in an exercise class on evenings. Vaishali retired after 34-35 years of service and now has more time for activities she enjoys, such as cooking and traveling. She recently visited her brothers in [place]. Her 28-year-old son has moved back home, which she appreciates for the help he provides around the house. She denies any chest pain, dyspnea, or breathing problems. She reports occasional insomnia and restless legs, which she attributes to her age and hormonal changes. She takes extra magnesium to help with these issues and has been eating bananas and cantaloupe to maintain her electrolyte balance. She denies any recent flu or colds, attributing her good health to taking elderberry, vitamin C, and practicing good hygiene. She manages seasonal allergies with loratadine. She declines flu and shingles vaccines. Declined Pneumonia vaccine and Flu vaccine. No bowel, Gi, or urinary concerns. Follows with [facility]. No chest pains, dizziness, or Shortness of Breath. Does not take any medications other than occ OTC supplements. Checks BP at home with readings running 108/71, 116/70/ Pulse in 70s. Past medical history, appointments, medications, allergies reviewed. 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 MULTIVITAMIN TAB Take one(1) tablet daily. No current facility-administered medications on file prior to visit. Social History SOCIAL HISTORY[1] EXAM: BP 138/80 Pulse 78 Resp 16 Ht 142.2 cm (4' 8") Wt 50.9 kg (112 lb 3.4 oz) LMP 07/09/2010 BMI 25.16 kg/m? General Appearance: Well appearing, alert, in no acute distress, well-hydrated, well nourished.. Lungs: Lungs clear to auscultation. No wheezing, rhonchi, rales.. Heart: RRR without murmur, gallop, or rubs. No ectopy. Health Maintenance List Shingrix Vaccine(1 of 2) Never done Depression Screening due on 12/05/2024 Anxiety Screening due on 12/05/2024 Mammogram Screening due on 04/29/2025 Influenza Vaccine(1) due on 09/29/2025 Pneumococcal Vaccine: 50+(1 of 1 - PCV) due on 12/16/2025 DTaP,Tdap,Td Vaccine(6 - Td or Tdap) due on 09/25/2027 Diabetes Screening due on 12/12/2027 Colorectal Cancer Screening due on 02/12/2028 Cervical Cancer Screening due on 04/24/2028 Lipid Screening due on 12/11/2029 RSV Vaccine(1 - 1-dose 75+ series) due on 2038 Hepatitis C Screening Completed HIV Screening Completed Data reviewed Appointment on 12/11/2024 Component Date Value Protein, Total 12/11/2024 6.6 Albumin 12/11/2024 4.3 Calcium, Total 12/11/2024 9.2 Bilirubin, Total 12/11/2024 0.6 Alkaline Phosphatase 12/11/2024 71 AST 12/11/2024 18 ALT 12/11/2024 12 Glucose 12/11/2024 72 (L) BUN 12/11/2024 10 Creatinine 12/11/2024 0.76 Sodium 12/11/2024 131 (L) Pota (more content not included)... [facility] 12-05-2024 Telephone encounter Note Patient notified. [facility] 12-05-2024 Miscellaneous Notes Patient notified. Fasting labs ordered. Carlos Lane APRN.CNP Patient calls and states that she has physical scheduled with provider on 12/16/2024. Patient asking if provider want to place lab orders and if so when should labs be done? Please review and advise, Fabiola Shipman RN documented in this encounter [facility] 12-05-2024 Telephone encounter Note Fasting labs ordered. Carlos Lane APRN.CNP [facility] 12-04-2024 Telephone encounter Note Patient calls and states that she has physical scheduled with provider on 12/16/2024. Patient asking if provider want to place lab orders and if so when should labs be done? Please review and advise, Fabiola Shipman RN [facility] 08-08-2024 Telephone encounter Note TC to patient who verbalized understanding of providers message below. DEV Case [facility] 08-08-2024 Miscellaneous Notes TC to patient who verbalized understanding of providers message below. DEV Case Please contact patient let her know urine culture did reveal UTI. She is on the appropriate antibiotic. Continue as prescribed documented in this encounter [facility] 08-08-2024 Telephone encounter Note Please contact patient let her know urine culture did reveal UTI. She is on the appropriate antibiotic. Continue as prescribed [facility] Work Phone: 08-06-2024 Instructions Krissy Mahmood APRN.SARAH - 08/06/2024 2:35 PM EDT Images from the original note were not included. Urinary Problem-When to Seek Help? Symptoms of a urinary problem may lead to a bladder infection. Women are at greater risk of a urinary tract infection than are men. Most urinary tract infections in women are caused by bacteria and involve the lower urinary tract including the bladder and urethra. Symptoms: Pain or burning when passing urine, urgency, frequency, blood in the urine, difficult emptying your bladder, and lower abdominal fullness or pressure. Common Causes: Sexual intercourse, menopause, constipation, uncontrolled diabetes, dehydration and feminine products such as tampons, and kidney stones. When to Get Help: Seek medical attention if you get frequent bladder infections, urinary concerns such as leakage, blood in the urine or frequent need to urinate. You may be recommended to get help from a specialist, such as a urologist. Diagnosis & Treatment: Lab testing may include: urinalysis, and urine culture that can be collected in the lab or walk-in clinic. Most bladder infections can easily be treated. A physician, nurse practitioner or physician assistant professor of biology may treat with a short course of an antibiotic. Delaying treatment can lead to worsening symptoms, like a kidney infection. Self-Care: Avoid a full bladder, bubble baths, bath oils, food and beverages that may irritate the bladder such as caffeine. Avoid spermicide foam and diaphragms Void before and after sexual intercourse Wipe front to back after using the bathroom. Stay hydrated Stop Smoking Follow-up Care: Follow up testing is not needed in healthy young women if symptoms resolve. documented in this encounter [facility] 08-06-2024 Note HNO ID: [id number] Author: KRISSY MAHMOOD APRN.SARAH Service: ? Author Type: Nurse Practitioner Type: Progress Notes Filed: 08/06/2024 15:01 Note Text: [facility] Subjective Vaishali Mcgee is a 59 year old female. Patient presents with: Urinary Frequency: With urgency x2 days 59 year old female with PMH presents for possible UTI Acute onset 2 to 3 days ago +burning +urgency +frequency Denies vaginal bleeding Denies vaginal discharge Denies abdominal pain Denies N/V/D Recent coitus Mehdi concerns for STI Denies using homeopathic or OTC The history is provided by the patient. No global supply chain vice president was used. UTI This is a new problem. The current episode started 2 days ago. The problem occurs every urination. The problem has not changed since onset.The quality of the pain is described as burning. The pain is at a severity of 4/10. The pain is mild. She is Sexually active. There is No history of pyelonephritis. Associated symptoms include frequency and urgency. Pertinent negatives include no chills, no sweats, no nausea, no vomiting, no discharge, no hematuria, no hesitancy, no possible and no flank pain. She has tried nothing for the symptoms. Her past medical history does not include kidney stones, single kidney, urological procedure, recurrent UTIs, urinary stasis or catheterization. 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 MULTIVITAMIN TAB Take one(1) tablet daily. cephALEXin (KEFLEX) 500 mg capsule Take 1 capsule by mouth two times a day for 5 days. FAMILY HISTORY Problem Relation Age of Onset Emphysema Mother Heart Mother No Known Problems Father Ischemic Heart Disease Paternal Grandfather Diabetes Maternal Aunt Cancer Maternal Aunt Lung Cancer Heart Maternal Aunt Diabetes Maternal Uncle Cancer Maternal Uncle Social History Tobacco Use Smoking status: Never Smokeless tobacco: Never Vaping Use Vaping status: Never Used Substance Use Topics Alcohol use: Yes Comment: occasional Drug use: No Review of Systems Constitutional: Negative for activity change, appetite change, chills and diaphoresis. Eyes: Negative for pain, discharge, redness and itching. Respiratory: Negative for apnea, cough, choking and chest tightness. Cardiovascular: Negative for chest pain, palpitations and leg swelling. Gastrointestinal: Negative for abdominal pain, diarrhea, nausea and vomiting. Genitourinary: Positive for dysuria, frequency and urgency. Negative for flank pain, hematuria and hesitancy. Musculoskeletal: Negative for arthralgias, back pain, gait problem and joint swelling. Skin: Negative for color change, pallor, rash and wound. Allergic/Immunologic: Negative for environmental allergies, food allergies and immunocompromised state. Neurological: Negative for dizziness, facial asymmetry, light-headedness and headaches. Hematological: Negative for adenopathy. Does not bruise/bleed easily. Psychiatric/Behavioral: Negative for agitation and behavioral problems. Objective BP 145/87 Pulse 80 Temp 36.6 ?C (97.9 ?F) Resp 18 Wt 54.7 kg (120 lb 9.5 oz) LMP 07/09/2010 SpO2 100% BMI 27.04 kg/m? Physical Exam Vitals and nursing note reviewed. Constitutional: General: She is not in acute distress. Appearance: Normal appearance. She is normal weight. She is not ill-appearing, toxic-appearing or diaphoretic. HENT: Head: Normocephalic and atraumatic. Right Ear: Ear canal and external ear normal. Left Ear: Ear canal and external ear normal. Nose: Nose normal. No congestion or rhinorrhea. Mouth/Throat: Mouth: Mucous membranes are moist. Pharynx: No oropharyngeal exudate or posterior oropharyngeal erythema. Eyes: General: Right eye: No discharge. Left eye: No discharge. Extraocular Movements: Extraocular movements intact. Conjunctiva/sclera: Conjunctivae normal. Pupils: Pupils are equal, round, and reactive to light. Cardiovascular: Rate and Rhythm: Normal rate and regular rhythm. Pulses: Normal pulses. Heart sounds: Normal heart sounds. No murmur heard. No friction rub. Pulmonary: Effort: Pulmonary effort is normal. No respiratory distress. Breath sounds: Normal breath sounds. No stridor. No wheezing, rhonchi or rales. Chest: (more content not included)... [facility] 08-06-2024 History of Present illness Narrative [facility] Subjective Vaishali Mcgee is a 59 year old female. Patient presents with: Urinary Frequency: With urgency x2 days 59 year old female with PMH presents for possible UTI Acute onset 2 to 3 days ago +burning +urgency +frequency Denies vaginal bleeding Denies vaginal discharge Denies abdominal pain Denies N/V/D Recent coitus Mehdi concerns for STI Denies using homeopathic or OTC The history is provided by the patient. No global supply chain vice president was used. UTI This is a new problem. The current episode started 2 days ago. The problem occurs every urination. The problem has not changed since onset.The quality of the pain is described as burning. The pain is at a severity of 4/10. The pain is mild. She is Sexually active. There is No history of pyelonephritis. Associated symptoms include frequency and urgency. Pertinent negatives include no chills, no sweats, no nausea, no vomiting, no discharge, no hematuria, no hesitancy, no possible and no flank pain. She has tried nothing for the symptoms. Her past medical history does not include kidney stones, single kidney, urological procedure, recurrent UTIs, urinary stasis or catheterization. 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 MULTIVITAMIN TAB Take one(1) tablet daily. cephALEXin (KEFLEX) 500 mg capsule Take 1 capsule by mouth two times a day for 5 days. FAMILY HISTORY Problem Relation Age of Onset Emphysema Mother Heart Mother No Known Problems Father Ischemic Heart Disease Paternal Grandfather Diabetes Maternal Aunt Cancer Maternal Aunt Lung Cancer Heart Maternal Aunt Diabetes Maternal Uncle Cancer Maternal Uncle Social History Tobacco Use Smoking status: Never Smokeless tobacco: Never Vaping Use Vaping status: Never Used Substance Use Topics Alcohol use: Yes Comment: occasional Drug use: No Review of Systems Constitutional: Negative for activity change, appetite change, chills and diaphoresis. Eyes: Negative for pain, discharge, redness and itching. Respiratory: Negative for apnea, cough, choking and chest tightness. Cardiovascular: Negative for chest pain, palpitations and leg swelling. Gastrointestinal: Negative for abdominal pain, diarrhea, nausea and vomiting. Genitourinary: Positive for dysuria, frequency and urgency. Negative for flank pain, hematuria and hesitancy. Musculoskeletal: Negative for arthralgias, back pain, gait problem and joint swelling. Skin: Negative for color change, pallor, rash and wound. Allergic/Immunologic: Negative for environmental allergies, food allergies and immunocompromised state. Neurological: Negative for dizziness, facial asymmetry, light-headedness and headaches. Hematological: Negative for adenopathy. Does not bruise/bleed easily. Psychiatric/Behavioral: Negative for agitation and behavioral problems. Objective BP 145/87 Pulse 80 Temp 36.6 C (97.9 F) Resp 18 Wt 54.7 kg (120 lb 9.5 oz) LMP 07/09/2010 SpO2 100% BMI 27.04 kg/m Physical Exam Vitals and nursing note reviewed. Constitutional: General: She is not in acute distress. Appearance: Normal appearance. She is normal weight. She is not ill-appearing, toxic-appearing or diaphoretic. HENT: Head: Normocephalic and atraumatic. Right Ear: Ear canal and external ear normal. Left Ear: Ear canal and external ear normal. Nose: Nose normal. No congestion or rhinorrhea. Mouth/Throat: Mouth: Mucous membranes are moist. Pharynx: No oropharyngeal exudate or posterior oropharyngeal erythema. Eyes: General: Right eye: No discharge. Left eye: No discharge. Extraocular Movements: Extraocular movements intact. Conjunctiva/sclera: Conjunctivae normal. Pupils: Pupils are equal, round, and reactive to light. Cardiovascular: Rate and Rhythm: Normal rate and regular rhythm. Pulses: Normal pulses. Heart sounds: Normal heart sounds. No murmur heard. No friction rub. Pulmonary: Effort: Pulmonary effort is normal. No respiratory distress. Breath sounds: Normal breath sounds. No stridor. No wheezing, rhonchi or rales. Chest: Chest wall: No tenderness. Abdominal: General: Abdomen is flat. There is no distension. Palpations: Abdomen is soft. There is no mass. Tenderness: There is no abdominal tenderness. There is no right CVA tenderness, left CVA tenderness, guarding or rebound. Hernia: No hernia is present. Musculoskeletal: General: No swelling, tenderness, deformity or signs of injury. Normal range of motion. Cervical back: Normal range of motion and neck supple. No rigidity. Right lower leg: No edema. Left lower leg: No edema. Lymphadenopathy: Cervical: No cervical adenopathy. Skin: General: Skin is warm and dry. Capillary Refill: Capillary refill takes less than 2 seconds. Coloration: Skin is not jaundiced or pale. Findings: No bruising, erythema, lesion or rash. Neurological: General: No focal deficit present. Mental Status: She is alert and oriented to person, place, and time. Cranial Nerves: No cranial nerve deficit. Sensory: No sensory deficit. Motor: No weakness. Coordination: Coordination normal. Gait: Gait normal. Psychiatric: Mood and Affect: Mood normal. Behavior: Behavior normal. Thought Content: Thought content normal. Judgment: Judgment normal. {ASSESSMENT/PLAN: 1. Acute cystitis with hematuria - ICD9: 595.0, ICD10: N30.01 X 2 to 3 days Urine dip POSITIVE for leuks and hematuria Reviewed urine culture from November 2023, +bacterial growth- 50,000-<100,000 CFU/ml Proteus mirabilis Abnormal Resistant to Macrobid Will place patient on Keflex Encouraged fluid F/u with PCP - UA DIP, URINE (POC) - BACTERIAL CULTURE, URINE Krissy Mahmood APRN.AWNING ERECTOR History and Record Review External record(s) reviewed: prior inpatient record and prior outpatient record. Differential Diagnoses - cystitis is more likely for the following reason(s): suggested by H&P - sti is less likely for the following reason(s): H&P not suggestive Disposition The patient was discharged. Procedures documented in this encounter [facility] 04-29-2024 Instructions Iliana Clark APRN.SARAH - 04/29/2024 10:05 AM EST - Eat primarily whole foods. Limit carbs, especially processed carbs. Eat - Meat, vegetables and fruits with skin on if possible, eggs, cheese. - Do not drink your calories - 30 grams of protein for your first meal of the day decreases your hunger during the day by up to 40 %. Options include: Premier Protein or generic 30 gm protein 1 gm sugar or 5 eggs or 2-3 eggs and some unbreaded meat and/or cheese. No fruit, vegetables, bread, grain, yogurt, Smoothies, etc. - Walk for 15 minutes immediately after meal Hemp seeds/hearts High protein yogurt Cottage cheese documented in this encounter [facility] 04-29-2024 Note HNO ID: [id number] Author: ILIANA CLARK APRN.SARAH Service: ? Author Type: Nurse Practitioner Type: Progress Notes Filed: 04/29/2024 13:11 Note Text: Director Of Product Marketing offered: Patient declinesTwin Tom is a 59 year old who presents for an annual gynecologic exam without complaints. Postmenopausal: Yes since age 51 HRT use: No Menses: no menses - postmenopausal Sexually active: Yes HPV vaccine: No Last pap smear: 04/24/2023 normal HPV: negative History of abnormal pap: Yes, Yes, 2018 - ASCUS, HPV neg cryo 2018 - benign colpo Dr Jovany Leigh: Yes: in her 20's Last mammogram: 2024 pending History of abnormal mammogram: No History of STDS: HSV possibly 2 outbreak past 2 years - only had a couple of lesions Patient concerns for STD exposure: No Time with current partner: 7 years Pain with intercourse: No Postcoital bleeding: No Hot flashes: Yes, random Documentation from previous visit of 04/24/2023 was copied and pasted, documentation has been reviewed and edited as necessary for today's visit. 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 RPR 1ST INGUN HRNA AGE 3 YRS/> INCARCERATED UNSPECIFIED ORAL SURGERY PROCEDURE, BY REPORT Angelica Teeth x2 Removed FAMILY HISTORY Problem Relation Age of Onset Emphysema Mother Heart Mother No Known Problems Father Ischemic Heart Disease Paternal Grandfather Diabetes Maternal Aunt Cancer Maternal Aunt Lung Cancer Heart Maternal Aunt Diabetes Maternal Uncle Cancer Maternal Uncle SOCIAL HISTORY Social History Tobacco Use Smoking status: Never Smokeless tobacco: Never Vaping Use Vaping status: Never Used Substance Use Topics Alcohol use: Yes Comment: occasional Drug use: No REVIEW OF SYSTEMS Abdomen: No abdominal pain, nausea, vomiting, diarrhea, or constipation. No bloating, early satiety, indigestion, or increased flatulence. Bladder: No dysuria, gross hematuria, urinary frequency, urinary urgency, or incontinence Breast: No breast lumps, nipple d/c, overlying skin changes, redness or skin retraction Allergies and current medication updated:Yes SENSITIVE EXAM: The sensitive examination was discussed with the Patient or Patient's Authorized Senior Strategy Manager. As applicable, any other physician, advance practice provider, medical student, or other health professional student that will be observing or involved in the sensitive examination for educational or training purposes was discussed with the Patient or Authorized Senior Strategy Manager. The Patient or Authorized Senior Strategy Manager has agreed to proceed with the sensitive examination. (Sensitive examination includes inspection and/or palpation of the breasts, pelvis, prostate and anorectal regions). EXAM: BP 130/78 Ht 4' 8" (1.42m) Wt 118 lb (53.5kg) LMP 07/09/2010 BMI 26.47 kg/(m2). GENERAL: pleasant, female in no apparent distress HEENT: Normocephalic, atraumatic, mucus membranes moist, and no lesions NECK: Supple, full range of motion, no adenopathy, and thyroid normal DERMATOLOGY: Normal, without lesions, non-icteric, and non-hirsute BREAST: soft, non-tender, symmetric, no dominant mass, normal nipple-areolar complex, no lymphadenopathy, and no nipple discharge CHEST: Normal inspiratory effort ABDOMEN: soft, non-tender, and no masses PELVIC: external genitalia normal, normal Bartholin's glands, urethra, Norge's glands, no vulvar lesions, good vaginal support, physiologic discharge present, normal appearing perineal body and perianal region, small raised friable area to right cervix as per usual - colpo benign 2018 and subsequent Pap normal. BIMANUAL: uterus normal size, shape and consistency, no adnexal masses, and non-tender RECTOVAGINAL: deferred. NEURO: alert and oriented x3,exam grossly non-focal EXTREMITIES: normal ASSESSMENT/PLAN: 1) Health maintenance: Pap/HPV up to date. HPV screening due 2026 Mammogram ordered Mammogram up to date Nutrition, exercise and routine health maintenance exams reviewed. Calcium/Vitamin D supplementation information provided. Colon cancer screening: up to date with screening Unintended weight gain since retiring: - Eat primarily whole foods. Limit carbs, especially processed c (more content not included)... [facility] 04-29-2024 History of Present illness Narrative Director Of Product Marketing offered: Patient declines. Vaishali is a 59 year old who presents for an annual gynecologic exam without complaints. Postmenopausal: Yes since age 51 HRT use: No Menses: no menses - postmenopausal Sexually active: Yes HPV vaccine: No Last pap smear: 04/24/2023 normal HPV: negative History of abnormal pap: Yes, Yes, 2018 - ASCUS, HPV neg cryo 2018 - benign colpo Dr Jovany Leigh: Yes: in her 20's Last mammogram: 2024 pending History of abnormal mammogram: No History of STDS: HSV possibly 2 outbreak past 2 years - only had a couple of lesions Patient concerns for STD exposure: No Time with current partner: 7 years Pain with intercourse: No Postcoital bleeding: No Hot flashes: Yes, random Documentation from previous visit of 04/24/2023 was copied and pasted, documentation has been reviewed and edited as necessary for today's visit. 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 RPR 1ST INGUN HRNA AGE 3 YRS/> INCARCERATED UNSPECIFIED ORAL SURGERY PROCEDURE, BY REPORT Angelica Teeth x2 Removed FAMILY HISTORY Problem Relation Age of Onset Emphysema Mother Heart Mother No Known Problems Father Ischemic Heart Disease Paternal Grandfather Diabetes Maternal Aunt Cancer Maternal Aunt Lung Cancer Heart Maternal Aunt Diabetes Maternal Uncle Cancer Maternal Uncle SOCIAL HISTORY Social History Tobacco Use Smoking status: Never Smokeless tobacco: Never Vaping Use Vaping status: Never Used Substance Use Topics Alcohol use: Yes Comment: occasional Drug use: No REVIEW OF SYSTEMS Abdomen: No abdominal pain, nausea, vomiting, diarrhea, or constipation. No bloating, early satiety, indigestion, or increased flatulence. Bladder: No dysuria, gross hematuria, urinary frequency, urinary urgency, or incontinence Breast: No breast lumps, nipple d/c, overlying skin changes, redness or skin retraction Allergies and current medication updated:Yes SENSITIVE EXAM: The sensitive examination was discussed with the Patient or Patient's Authorized Senior Strategy Manager. As applicable, any other physician, advance practice provider, medical student, or other health professional student that will be observing or involved in the sensitive examination for educational or training purposes was discussed with the Patient or Authorized Senior Strategy Manager. The Patient or Authorized Senior Strategy Manager has agreed to proceed with the sensitive examination. (Sensitive examination includes inspection and/or palpation of the breasts, pelvis, prostate and anorectal regions). EXAM: BP 130/78 Ht 4' 8" (1.42m) Wt 118 lb (53.5kg) LMP 07/09/2010 BMI 26.47 kg/(m^2). GENERAL: pleasant, female in no apparent distress HEENT: Normocephalic, atraumatic, mucus membranes moist, and no lesions NECK: Supple, full range of motion, no adenopathy, and thyroid normal DERMATOLOGY: Normal, without lesions, non-icteric, and non-hirsute BREAST: soft, non-tender, symmetric, no dominant mass, normal nipple-areolar complex, no lymphadenopathy, and no nipple discharge CHEST: Normal inspiratory effort ABDOMEN: soft, non-tender, and no masses PELVIC: external genitalia normal, normal Bartholin's glands, urethra, Norge's glands, no vulvar lesions, good vaginal support, physiologic discharge present, normal appearing perineal body and perianal region, small raised friable area to right cervix as per usual - colpo benign 2018 and subsequent Pap normal. BIMANUAL: uterus normal size, shape and consistency, no adnexal masses, and non-tender RECTOVAGINAL: deferred. NEURO: alert and oriented x3,exam grossly non-focal EXTREMITIES: normal ASSESSMENT/PLAN: 1) Health maintenance: Pap/HPV up to date. HPV screening due 2026 Mammogram ordered Mammogram up to date Nutrition, exercise and routine health maintenance exams reviewed. Calcium/Vitamin D supplementation information provided. Colon cancer screening: up to date with screening Unintended weight gain since retiring: - Eat primarily whole foods. Limit carbs, especially processed carbs. Eat - Meat, vegetables and fruits with skin on if possible, eggs, cheese. - Do not drink your calories - 30 grams of protein for your first meal of the day decreases your hunger during the day by up to 40 %. Options include: Premier Protein or generic 30 gm protein 1 gm sugar or 5 eggs or 2-3 eggs and some unbreaded meat and/or cheese. No fruit, vegetables, bread, grain, yogurt, Smoothies, etc. - Walk for 15 minutes immediately after meal 2) Follow up one year or sooner as needed Iliana Clark APRN.SARAH documented in this encounter [facility] 04-29-2024 History of Present illness Narrative Radiology Service Progress Note PATIENT NAME: Vaishali Mcgee DATE OF SERVICE: April 29, 2024 TIME: 9:12 AM PATIENT IDENTITY VERIFICATION COMPLETED USING TWO (2) IDENTIFIERS: Name and Date of confirmed by patient verbally. FALL SCREENING: Has the patient had 2 falls in the last year or 1 fall with injury or currently using an Ambulatory Assistive Device (Walker, Cane, Wheelchair, Crutches, etc.)? No PATIENT GENDER DATA: Assigned female at . status: : No status: NO. PATIENT RELEVANT IMPLANT DATA REVIEWED: Not Applicable PATIENT PRESENTS WITH AN IMPLANTABLE OR ATTACHED DOCK MANAGER: No RADIOLOGY DEPARTMENT: Mammography PERIPHERAL IV DATA: Not applicable SIGNED BY: Camila Jessu April 29, 2024 9:12 AM documented in this encounter [facility] 04-29-2024 Note HNO ID: [id number] Author: MINNA BRUCE Mammo Tech Service: ? Author Type: Technologist Type: Progress Notes Filed: 04/29/2024 09:12 Note Text: Radiology Service Progress Note PATIENT NAME: Vaishali Mcgee DATE OF SERVICE: April 29, 2024 TIME: 9:12 AM PATIENT IDENTITY VERIFICATION COMPLETED USING TWO (2) IDENTIFIERS: Name and Date of confirmed by patient verbally. FALL SCREENING: Has the patient had 2 falls in the last year or 1 fall with injury or currently using an Ambulatory Assistive Device (Walker, Cane, Wheelchair, Crutches, etc.)? No PATIENT GENDER DATA: Assigned female at . status: : No status: NO. PATIENT RELEVANT IMPLANT DATA REVIEWED: Not Applicable PATIENT PRESENTS WITH AN IMPLANTABLE OR ATTACHED DOCK MANAGER: No RADIOLOGY DEPARTMENT: Mammography PERIPHERAL IV DATA: Not applicable SIGNED BY: Camila Jesus April 29, 2024 9:12 AM [facility] 12-10-2023 Telephone encounter Note Patient notified of results, verbalizes understanding of instructions. Rani Landaverde LPN [facility] 12-10-2023 Miscellaneous Notes Patient notified of results, verbalizes understanding of instructions. Rani Landaverde LPN Can you please call the patient and let her know that I reviewed her lab results. Labs were all relatively normal. LDL cholesterol just mildly elevated. Continue to eat a well-balanced diet, be mindful of processed foods. Increase lean protein, vegetables, and get some form of exercise. Please let me know if she has any questions. Thank you. Rachelle Bear APRN.CNP documented in this encounter [facility] 12-10-2023 Telephone encounter Note Can you please call the patient and let her know that I reviewed her lab results. Labs were all relatively normal. LDL cholesterol just mildly elevated. Continue to eat a well-balanced diet, be mindful of processed foods. Increase lean protein, vegetables, and get some form of exercise. Please let me know if she has any questions. Thank you. Rachelle Bear APRN.CNP [facility] 12-06-2023 Instructions Rachelle Bear APRN.CNP - 12/06/2023 7:12 AM EDT Get fasting labs completed today Continue to take all medication as prescribed. Continue to eat well balanced diet and get some form of exercise Follow up in 1 year or sooner pending test results. Health Promotion: - Eat healthy -- go to ChooseSmartPillPlate.gov to get started - Have a yearly physical - Mammogram yearly after age 40 - Get at least 30 minutes of physical activity daily - Get at least 7 to 8 hours of sleep each night - Reach and maintain a healthy weight - Get help to quit or don't start smoking - Limit alcohol use to one drink or less - Do not use illegal drugs or misuse prescription drugs - Wear a helmet when riding a bike and wear protective gear for sports - Wear a seatbelt in cars and not text and drive - Wear sunscreen documented in this encounter [facility] 12-06-2023 History of Present illness Narrative This is a 58 year old female who presents today with: Patient presents with: Wellness HISTORY OF PRESENT ILLNESS: Vaishali Mcgee is a 58 year old female. Patient presents with: Wellness Wellness exam Retired in April 2023. Diet: Eating well balanced diet. Exercise: refit exercise class, once weekly and walking other days. Vision: Had exam, wearing glasses. Narrow angle glaucoma. Every 6 month follow up. Dental: Had exam. Sleep: 7 hours per night. Mood: Denied increased sadness, anxiety, or SI/HI. [facility], Dr. Raza, skin checks. Had an area that was itchy on the forehead, refers she was given steroid cream which was helpful. Allergies: Taking loratadine as needed. 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 Elevated BP: Has had elevated blood pressure at office visits in the past. Denies chest pain, palpitations, headache, dizziness, or edema. Checking blood pressure at home 117/60's. History of abnormal Pap smear/lesion of the cervix: April 2023 last pap, WNL. History of Herpes, will use Valcyclovir as needed. Mammogram: April 2023, w/chris normal. Colonoscopy:2018 last completed 2027 Vaccines: Denied wanting any vaccines at this time. 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 No date: OFFICE LEEP Comment: in her 20s by history 04/2023: PAST SURGICAL HISTORY OF Comment: YAG procedure on both eyes - escape valve created to avoid increased pressure No date: RPR 1ST INGUN HRNA AGE 3 YRS/> INCARCERATED No date: UNSPECIFIED ORAL SURGERY PROCEDURE, BY REPORT Comment: Angelica Teeth x2 Removed ALLERGIES Sulfa (Sulfonamide Antibiotics) MEDICATIONS Current Outpatient Medications Medication Sig valACYclovir (VALTREX) 500 mg tablet Take 1 tablet by mouth once daily. LORATADINE ORAL Take by mouth. MULTIVITAMIN TAB Take one(1) tablet daily. No current facility-administered medications for this visit. FAMILY HISTORY Problem Relation Age of Onset Emphysema Mother Heart Mother No Known Problems Father Ischemic Heart Disease Paternal Grandfather Diabetes Maternal Aunt Cancer Maternal Aunt Lung Cancer Heart Maternal Aunt Diabetes Maternal Uncle Cancer Maternal Uncle Social History Tobacco Use Smoking status: Never Smokeless tobacco: Never Vaping Use Vaping status: Never Used Substance Use Topics Alcohol use: Yes Comment: occasional Drug use: No REVIEW OF SYSTEMS GENERAL: No weight loss, malaise or fevers/chills HEENT: Negative for frequent or significant headaches, No changes in hearing or vision. NECK: Negative for lumps, goiter, pain and significant neck swelling RESPIRATORY: Negative for cough, hemoptysis, wheezing, dyspnea or shortness of breath CARDIOVASCULAR: Negative for chest pain, leg swelling, orthopnea, or palpitations GI: No nausea, vomiting, or diarrhea/constipation. No hematochezia/melena. No heartburn or reflux symptoms. : No history of dysuria, frequency or incontinence MUSCULOSKELETAL: Negative for joint pain or swelling. SKIN: Negative for lesions, rash, and itching ENDOCRINE: Negative for cold or heat intolerance, polyuria, polydipsia and goiter NEURO: No history of headaches, syncope, paralysis, seizures or tremors MOOD: Negative for depression, anxiety, or suicidal ideation. EXAM: BP 100/69 Pulse 69 Resp 16 Ht 142.2 cm (4' 8") Wt 53 kg (116 lb 13.5 oz) LMP 07/09/2010 SpO2 100% BMI 26.20 kg/m PHYSICAL EXAM: General Appearance: Well appearing, alert, in no acute distress, well-hydrated, well nourished. Skin: Skin color, texture, turgor normal, no suspicious rashes or lesions. Head: Normocephalic, no masses, lesions, tenderness or abnormalities. Eyes: Anicteric sclera. Pupils are equally round and reactive to light. Extraocular movements are intact. Ears: External ears normal, canals clear. TMs pearly cotter. Neck: Supple, no adenopathy; thyroid symmetric, normal size, no bruits. Lungs: Lungs clear to auscultation. No wheezing, rhonchi, rales. Heart: RRR without murmur, gallop, or rubs. No ectopy. Abdomen: Normal abdominal exam, Abdomen soft, non-tender. Bowel sounds normal. No masses, organomegaly. Extremities: No deformities, edema, skin discoloration, clubbing or cyanosis. Good capillary refill. Musculoskeletal: No joint swelling, deformity, or tenderness. Peripheral Pulses: Normal, Capillary refill <2secs, strong peripheral pulses, Pulses palpable. Neurologic: Gait normal. Reflexes normal and symmetric. Sensation grossly intact.. Mood: Pleasant, engaged, good eye contact. ASSESSMENT/PLAN: 1. Wellness examination - ICD9: V70.0, ICD10: Z00.00 (primary diagnosis) - Counseled on healthy diet and regular exercise - Discussed need and benefit for weight loss. BMI 26.20 kg/(m^2) - Mammogram ordered - exam recommended once yearly - Follow up for annual exam in one year - COMPREHENSIVE METABOLIC PANEL 2. Seasonal allergies - ICD9: 477.9, ICD10: J30.2 - Stable, continue to take current medication. 3. 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 History of herpes genitalis - ICD9: V12.09, ICD10: Z86.19 - Stable 5. Atypical squamous cells of undetermined significance (ASCUS) on Papanicolaou smear of cervix - ICD9: 795.01, ICD10: R87.610 - Stable 6. Screening for depression - ICD9: V79.0, ICD10: Z13.31 - DEPRESSION SCREENING 7. Encounter for screening examination for other mental health and behavioral disorders - ICD9: V79.8, ICD10: Z13.39 - ANXIETY SCREENING 8. Screening cholesterol level - ICD9: V77.91, ICD10: Z13.220 - LIPID PANEL BASIC Follow-up in 1 year or sooner pending test results. Discussed treatment plan and patient voices understanding. Patient's questions answered appropriately. Medications and potential side effects were discussed and patient voices understanding. Rachelle Bear APRN.AWNING ERECTOR This note was partially generated using Re[employer]vant recognition system. Note was reviewed for accuracy. There may be minor misspellings or grammar miscues with [employer] voice recognition. documented in this encounter [facility] 11-25-2023 Telephone encounter Note Patient given results and verbalized understanding of instructions given. Karin Elizondo MA [facility] 11-25-2023 Miscellaneous Notes Patient given results and verbalized understanding of instructions given. Karin Elizondo MA Please notify positive for uti but the atb was resistant on the culture. I will send another atb to pharmacy. F/u for continued s/s. Stop macrobid documented in this encounter [facility] 11-25-2023 Telephone encounter Note Please notify positive for uti but the atb was resistant on the culture. I will send another atb to pharmacy. F/u for continued s/s. Stop macrobid [facility] 11-23-2023 History of Present illness Narrative This note was created using P[employer] Mediar[employer]. Subjective Vaishali Mcgee is a 58 year old female. HPI Pt began to notice UTI type symptoms about five days ago. She tried otc meds with no relief. She notes urgency, cloudy urine and foul odor. Review of Systems Constitutional: Negative for fatigue and fever. Genitourinary: Positive for frequency and urgency. Objective BP 142/88 Pulse 80 Temp 36.3 C (97.4 F) Resp 19 Wt 54 kg (119 lb 0.8 oz) LMP 07/09/2010 SpO2 98% BMI 26.48 kg/m Physical Exam Vitals and nursing note reviewed. Constitutional: General: She is not in acute distress. Appearance: Normal appearance. She is not ill-appearing. HENT: Head: Normocephalic. Cardiovascular: Rate and Rhythm: Normal rate and regular rhythm. Pulmonary: Effort: Pulmonary effort is normal. Breath sounds: Normal breath sounds. Abdominal: Palpations: Abdomen is soft. Tenderness: There is no abdominal tenderness. Musculoskeletal: General: Normal range of motion. Cervical back: Normal range of motion. Skin: General: Skin is warm and dry. Neurological: General: No focal deficit present. Mental Status: She is alert. Psychiatric: Mood and Affect: Mood normal. Behavior: Behavior normal. Assessment and Plan ASSESSMENT/PLAN: 1. Urgency of urination - ICD9: 788.63, ICD10: R39.15 (primary diagnosis) As below - UA DIP, URINE (POC) - URINE CULTURE 2. Acute UTI - ICD9: 599.0, ICD10: N39.0 acute - UA positive for radha esterase and hematuria - Send urine for culture - Begin treatment with Macrobid 100 mg BID for 5 days - NITROFURANTOIN MONOHYDRATE & MACROCRYSTAL 100 MG ORAL CAP Jai Soria APRN.CNP documented in this encounter [facility] 12-06-2022 Miscellaneous Notes Nurse left message with specialist to request record from current cardiology associate. Patient was seen in our office for a wellness exam. Rachelle Bear APRN.CNP Patient calls to let provider know that Dr. Chavez's office assisted her to get into see Dr. Rosalino Griffin with [facility]. Appointment is scheduled for January 05 and patient is on cancellation list. Patient reports that Dr. Chavez would like an progress note from with provider today faxed to office. Fax number is [phone] Chavez. Melissa Marx RN documented in this encounter [facility] 12-05-2022 Instructions Rachelle Bear APRN.CNP - 12/05/2022 7:01 AM EDT Start Medrol dose pack, take with food. Recommend using using 325 mg Aspirin daily, take with food. Do not start until you finish steroids. Monitor blood pressure at home, goal 130/80 or less. Watch salt and processed foods in the diet. Keep scheduled eye appointment Sunday. Mammogram due in the spring Follow up in 1 year for wellness exam or sooner as needed. Health Promotion: - Eat healthy -- go to [email or web address] to get started - Have a yearly physical - Mammogram yearly after age 40 - Get at least 30 minutes of physical activity daily - Get at least 7 to 8 hours of sleep each night - Reach and maintain a healthy weight - Get help to quit or don't start smoking - Limit alcohol use to one drink or less - Do not use illegal drugs or misuse prescription drugs - Wear a helmet when riding a bike and wear protective gear for sports - Wear a seatbelt in cars and not text and drive - Wear sunscreen documented in this encounter [facility] 12-05-2022 History of Present illness Narrative This is a 57 year old female who presents today with: Patient presents with: Yearly Exam: annual wellness HISTORY OF PRESENT ILLNESS: Vaishali Mcgee is a 57 year old female. Patient presents with: Yearly Exam: annual wellness Here in the office for wellness exam. Diet: Eating a well balanced diet. Exercise: Staying active, walking. Usually doing aerobics 2 days a week. Vision: Had exam, wearing glasses (see below). Dental: Due in the fall. Sleep: 7-8 hours. Mood: Denies any increased sadness, anxiety, or SI/HI. Anterior ischemic optic neuropathy: Sunday had some vision changes. Had eye exam, diagnosed with anterior ischemic optic neuropathy, recommending daily ASA, follow up with PCP office to determine dosing. Vision affected in the right eye. Follow up this week. Elevated BP: Has had several elevated blood pressure readings in the past couple of months. Denies chest pain, palpitations, headache, dizziness, or edema. History of abnormal Pap smear/lesion of the cervix: April 2021 last pap. History of Herpes, will use Valcyclovir as needed. Mammogram: Due at this time. Colonoscopy: 2018 last completed Vaccines: denies wanting an vaccines at this time. PAST MEDICAL HISTORY: PAST MEDICAL HISTORY Diagnosis Date Herpes, genital Seasonal allergies PAST SURGICAL HISTORY Procedure Laterality Date DELIVERY+ CARE COLONOSCOPY FLX DX W/COLLJ SPEC WHEN PFRMD 02/11/2018 Colonoscopy CRYO CAUTERY CERVIX in her 20s. OFFICE LEEP in her 20s by history RPR 1ST INGUN HRNA AGE 3 YRS/> INCARCERATED UNSPECIFIED ORAL SURGERY PROCEDURE, BY REPORT Angelica Teeth x2 Removed ALLERGIES Sulfa (Sulfonamide Antibiotics) MEDICATIONS Current Outpatient Medications Medication Sig LORATADINE ORAL Take by mouth. MULTIVITAMIN TAB Take one(1) tablet daily. No current facility-administered medications for this visit. FAMILY HISTORY Problem Relation Age of Onset Emphysema Mother Heart Mother No Known Problems Father Ischemic Heart Disease Paternal Grandfather Diabetes Maternal Aunt Cancer Maternal Aunt Lung Cancer Heart Maternal Aunt Diabetes Maternal Uncle Cancer Maternal Uncle Social History Tobacco Use Smoking status: Never Smokeless tobacco: Never Vaping Use Vaping Use: Never used Substance Use Topics Alcohol use: Yes Comment: occasional Drug use: No REVIEW OF SYSTEMS GENERAL: No weight loss, malaise or fevers/chills HEENT: Negative for frequent or significant headaches, No changes in hearing or vision. NECK: Negative for lumps, goiter, pain and significant neck swelling RESPIRATORY: Negative for cough, hemoptysis, wheezing, dyspnea or shortness of breath CARDIOVASCULAR: Negative for chest pain, leg swelling, orthopnea, or palpitations GI: No nausea, vomiting, or diarrhea/constipation. No hematochezia/melena. No heartburn or reflux symptoms. : No history of dysuria, frequency or incontinence MUSCULOSKELETAL: Negative for joint pain or swelling. SKIN: Negative for lesions, rash, and itching ENDOCRINE: Negative for cold or heat intolerance, polyuria, polydipsia and goiter NEURO: No history of headaches, syncope, paralysis, seizures or tremors MOOD: Negative for depression, anxiety, or suicidal ideation. EXAM: BP 130/90 Pulse 67 Resp 16 Ht 141 cm (4' 7.51") Wt 54 kg (119 lb) LMP 07/09/2010 SpO2 100% BMI 27.15 kg/m PHYSICAL EXAM: General Appearance: Well appearing, alert, in no acute distress, well-hydrated, well nourished. Skin: Skin color, texture, turgor normal, no suspicious rashes or lesions. Head: Normocephalic, no masses, lesions, tenderness or abnormalities. Eyes: Anicteric sclera. Pupils are equally round and reactive to light. Extraocular movements are intact. Ears: External ears normal, canals clear. TMs pearly cotter. Lungs: Lungs clear to auscultation. No wheezing, rhonchi, rales. Heart: RRR without murmur, gallop, or rubs. No ectopy. Abdomen: Normal abdominal exam, Abdomen soft, non-tender. Bowel sounds normal. No masses, organomegaly, Negative CVA tenderness. Extremities: No deformities, edema, skin discoloration, clubbing or cyanosis. Good capillary refill. Musculoskeletal: No joint swelling, deformity, or tenderness. Peripheral Pulses: Normal, Capillary refill <2secs, strong peripheral pulses, Pulses palpable. Neurologic: Gait normal. Reflexes normal and symmetric. Sensation grossly intact. Mood: Does not, engaged, good eye contact. ASSESSMENT/PLAN: 1. Wellness examination - ICD9: V70.0, ICD10: Z00.00 (primary diagnosis) - Counseled on healthy diet and regular exercise - Calcium intake with supplements or by diet of 1000 mg/day for under 50, 9328-1714 mg/day for 50+ - Mammogram ordered - exam recommended once yearly - Depression screening tool completed and reviewed with patient. Based on score and interview, patient is not at risk for depression and recommended no further intervention at this time. - Get annual labs through employer. - Follow up for annual exam in one year 2. 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 - Keep upcoming appointment with cardiology associate. - METHYLPREDNISOLONE 4 MG TABLETS IN A DOSE PACK 3. Elevated blood pressure reading without diagnosis of hypertension - ICD9: 796.2, ICD10: R03.0 - Encouraged dietary sodium restriction/DASH diet - Recommended regular aerobic exercise. - Recommend home blood pressure monitoring, to bring results in on next visit - Goal of BP <130/80 4. History of herpes genitalis - ICD9: V12.09, ICD10: Z86.19 - Use as needed. - VALACYCLOVIR 500 MG TABLET Follow-up in 1 year or sooner as needed. Discussed treatment plan and patient voices understanding. Patient's questions answered appropriately. Medications and potential side effects were discussed and patient voices understanding. Rachelle Bear APRN.SARAH This note was partially generated using [employer] voice recognition system. Note was reviewed for accuracy. There may be minor misspellings or grammar miscues with [employer]on voice recognition. documented in this encounter [facility] 12-02-2022 Miscellaneous Notes Patient calling requesting health information: Patient denies any new or worsening symptoms of which a provider is not aware:Yes .Patient states she was recently diagnosed with anterior ischemic optic neuropathy by Dr. Felix. States she spoke with Dr. Felix about the benefits of starting aspirin. States Dr. Felix advised patient to speak with her PCP about aspirin. Patient states she called Dr. Medel's office earlier today 12/02/22 and that she missed a call from [facility] at 6 pm this evening. Unable to find documentation regarding missed call from providers office. This encounter to be routed to provider as courtesy to patient. Patient aware that office is closed for the weekend. Patient encouraged to keep scheduled follow up appointment with PCP associate on 12/04/22. GO TO THE EMERGENCY ROOM OR CALL 911 IF: * You develop any new symptoms * Your condition worsens * You are concerned or anxious about your condition for any other reason. If you have any questions, you can call Nurse enterprise resource planning consultant back. documented in this encounter [facility] 12-01-2022 Miscellaneous Notes Patient calls and states that she been recently diagnosed with anterior ischemic optic neuropathy by [facility], Dr. Felix. Patient was told that she possibly would benefit by taking aspirin for this condition. Patient states that Dr. Felix had told her that primary care would have to advise on aspirin dosage. Patient asking when and what dosage of aspirin should she take? 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 Ischemic optic neuropathy Elevated blood pressure reading without diagnosis of hypertension History of herpes genitalis Personal history of other infectious and parasitic disease [facility] Diagnosis Urgency of urination- Primary Acute UTI Urinary tract infection, site not specified [facility] Diagnosis Wellness examination- Primary Seasonal allergies Allergic rhinitis, cause unspecified 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 Ischemic optic neuropathy History of herpes genitalis Personal history of other infectious and parasitic disease Atypical squamous cells of undetermined significance (ASCUS) on Papanicolaou smear of cervix Screening for depression Encounter for screening examination for other mental health and behavioral disorders Screening cholesterol level Screening for lipoid disorders [facility] Diagnosis Encounter for gynecological examination with abnormal finding Routine gynecological examination Encounter for screening mammogram for breast cancer Dense breast tissue [facility] Diagnosis Encounter for gynecological examination (general) (routine) without abnormal findings- Primary Encounter for screening mammogram for breast cancer [facility] Diagnosis Acute cystitis with hematuria- Primary Acute [facility]stitis [facility] Wellness examination- Primary [facility] Diagnosis Wellness examination- Primary Screening for depression Encounter for screening examination for other mental health and behavioral disorders Restless legs syndrome Restless legs syndrome (RLS) Insomnia, unspecified type Seasonal allergic rhinitis, unspecified trigger [facility] Diagnostic Procedure Only (Routine) - New Request Specialty Diagnoses / Procedures Referred By Contac t Referred To Contact [facility] Diagnoses Encounter for screening mammogram for breast cancer Procedures MANNY SCREENING W CHRIS SCREENING DIGITAL BREAST TOMOSYNTHESIS BI SCREENING MAMMOGRAPHY BI 2-VIEW BREAST INC Iliana Benz, INVESTMENT COUNSELOR.AWNING ERECTOR [address] [place] [address] [facility] [address] [place] [id number] Referral ID Status Reason Start Date Expiration Date Visits Requested Visits Authorized [id number] New Request Auto-Generat ed Referral 04/29/2024 05/29/2025 1 1 [facility] Summary Purpose Family History No Family History Records FoundNo Family History Records Found Advance Directives No Advanced Directives Records FoundNo Advanced Directives Records Found Additional Source Comments INFORMATION SOURCE (unrecogn ized section and content) DATE CREATED AUTHOR [facility]/20[facility] DATE CREATED AUTHOR AUTHOR'S ORGANIZ ATION 12/17/2024 [facility] Source Comments (unrecognize d section and content) In the event this informatio n is protected by the Federal Confidentiality of Alcohol and Drug Abuse Patient Records regulations: The Federal rules restrict any use of the information to criminally investigate or prosecute any alcohol or drug abuse patient.[facility] the event this information is protected by the Federal Confidentiality of Alcohol and Drug Abuse Patient Records regulations: The Federal rules restrict any use of the information to criminally investigate or prosecute any alcohol or drug abuse patient.[facility] event this information is protected by the Federal Confidentiality of Alcohol and Drug Abuse Patient Records regulations: The Federal rules restrict any use of the information to criminally investigate or prosecute any alcohol or drug abuse patient.[facility] event this information is protected by the Federal Confidentiality of Alcohol and Drug Abuse Patient Records regulations: The Federal rules restrict any use of the information to criminally investigate or prosecute any alcohol or drug abuse patient.[facility] event this information is protected by the Federal Confidentiality of Alcohol and Drug Abuse Patient Records regulations: The Federal rules restrict any use of the information to criminally investigate or prosecute any alcohol or drug abuse patient.[facility] the event this information is protected by the Federal Confidentiality of Alcohol and Drug Abuse Patient Records regulations: The Federal rules restrict any use of the information to criminally investigate or prosecute any alcohol or drug abuse patient.[facility] event this information is protected by the Federal Confidentiality of Alcohol and Drug Abuse Patient Records regulations: The Federal rules restrict any use of the information to criminally investigate or prosecute any alcohol or drug abuse patient.[facility] event this information is protected by the Federal Confidentiality of Alcohol and Drug Abuse Patient Records regulations: The Federal rules restrict any use of the information to criminally investigate or prosecute any alcohol or drug abuse patient.[facility] the event this information is protected by the Federal Confidentiality of Alcohol and Drug Abuse Patient Records regulations: The Federal rules restrict any use of the information to criminally investigate or prosecute any alcohol or drug abuse patient.[facility] event this information is protected by the Federal Confidentiality of Alcohol and Drug Abuse Patient Records regulations: The Federal rules restrict any use of the information to criminally investigate or prosecute any alcohol or drug abuse patient.[facility] the event this information is protected by the Federal Confidentiality of Alcohol and Drug Abuse Patient Records regulations: The Federal rules restrict any use of the information to criminally investigate or prosecute any alcohol or drug abuse patient.[facility] the event this information is protected by the Federal Confidentiality of Alcohol and Drug Abuse Patient Records regulations: The Federal rules restrict any use of the information to criminally investigate or prosecute any alcohol or drug abuse patient.[facility] the event this information is protected by the Federal Confidentiality of Alcohol and Drug Abuse Patient Records regulations: The Federal rules restrict any use of the information to criminally investigate or prosecute any alcohol or drug abuse patient.[facility] event this information is protected by the Federal Confidentiality of Alcohol and Drug Abuse Patient Records regulations: The Federal rules restrict any use of the information to criminally investigate or prosecute any alcohol or drug abuse patient.[facility] Reason for Visit (unrecogniz ed section and content) Reason Comments Information Reason Comments Yearly Exam annual wellness Reason Comments Patient Question Reason Comments Patient Update Reason Comments Urinary Problem Urgency, cloudy, odo r x 5 days Reason Comments Results Reason Comments Wellness Reason Comments Results Labs Specialty Diagnoses / Procedures Referred By Contaly t Referred To Contact [facility] Diagnoses Chris Mammogram Procedures TOMOSYNTHESIS, MAMMO Iliana Clark APRN.AWNING ERECTOR [address] [place] [address] [address] Referral ID Status Reason Start Date Expiration Date V isits Requested Visits Authorized [id number] Closed OON/Self Pay Override 04/20/2024 04/01/2025 1 1 Reason Comments Well Woman Specialty Diagnoses / Procedures Referred By Anil t Referred To Contact [facility] Diagnoses Annual Exam/Pap Procedures OFFICE/OP CONSLTJ NEW/EST PT SF MDM 20 MINUTES Self [address] [address] Referral ID Status Reason Start Date Expiration Date Visits Requested Visits Authorized [id number] Pending Review OON/Self Pay Override 08/09/2023 11/16/2024 1 1 Reason Comments Urinary Frequency With urgency x2 days Reason Comments Lab Orders Reason Comments Physical Specialty Diagnoses / Procedures Referred By Anil t Referred To Contact [facility] Diagnoses phys Procedures phys Podlogar, MARTHA Hurtado.AWNING ERECTOR [address] [place] [address] Phone: tel: fax: [facility] [address] [place] [address] Phone: tel: Referral ID Status Reason Start Date Expiration Date Visits Requested Visits Authorized [id number] New Request OON/Self Pay Override 12/06/2023 03/15/2025 1 1 Care Teams (unrecognized sec tion and content) Operator Weapon Locating Radar Relationship Specialty Start Date End Date Matteo Medel MD [address] [place] [address] PCP - General Family Medicine 06/14/21 Operator Weapon Locating Radar Relationship Specialty Start Date End Date Matteo Medel MD [address] [facility] [address] PCP - General Family Medicine 06/14/21 Operator Weapon Locating Radar Relationship Specialty Start Date End Date Matteo Medel MD [address] [facility] [address] PCP - General Family Medicine 06/14/21 Operator Weapon Locating Radar Relationship Specialty Start Date End Date Matteo Medel MD [address] [facility] [address] PCP - General Family Medicine 06/14/21 Operator Weapon Locating Radar Relationship Specialty Start Date End Date Matteo Medel MD [address] [facility] [address] PCP - General Family Medicine 06/14/21 Operator Weapon Locating Radar Relationship Specialty Start Date End Date Matteo Medel MD [address] [facility] [address] PCP - General Family Medicine 06/14/21 Operator Weapon Locating Radar Relationship Specialty Start Date End Date Matteo Medel MD [address] [facility] [address] PCP - General Family Medicine 06/14/21 Rachelle Bear, INVESTMENT COUNSELOR.AWNING ERECTOR [address] [facility] [address] Adzing And Boring Machine Helper Family Medicine 03/09/[address], MARTHA.AWNING ERECTOR [address] [facility] [address] Adzing And Boring Machine Helper Family [facility] 03/18/24 Operator Weapon Locating Radar Relationship Specialty Start Date End Date Matteo Medel MD [address] [facility] [address] PCP - General Family Medicine 06/14/21 Rachelle Bear APRN.AWNING ERECTOR [address] [facility] [address] Adzing And Boring Machine Helper Family Medicine 03/09/[address] APRN.AWNING ERECTOR [address] [facility] [address] Adzing And Boring Machine Helper [facility] 03/18/24 Operator Weapon Locating Radar Relationship Specialty Start Date End Date Matteo Medel MD [address] [facility] [address] PCP - General Family Medicine 06/14/21 Rachelle Bear APRN.AWNING ERECTOR [address] [facility] [address] Adzing And Boring Machine Helper Family [facility] 03/09/[address] APRN.AWNING ERECTOR [address] [facility] [address] Adzing And Boring Machine Helper [facility] 03/18/24 Operator Weapon Locating Radar Relationship Specialty Start Date End Date Matteo Medel MD [address] [facility] [address] PCP - General Family Medicine 06/14/21 Rachelle Bear APRN.AWNING ERECTOR [address] [facility] [address] Adzing And Boring Machine Helper Family Medicine 03/09/[address] APRN.AWNING ERECTOR [address] [facility] [address] [facility] 03/18/24 Operator Weapon Locating Radar Relationship Specialty Start Date End Date Matteo Medel MD [address] [place], [place] [address] PCP - [facility] 06/14/[address] APRN.AWNING ERECTOR [address] [place], [place] [id number] [facility] 03/18/24 Operator Weapon Locating Radar Relationship Specialty Start Date End Date Matteo Medel MD [address] [place], [place] [id number] PCP - [facility] 06/14/[address] APRN.AWNING ERECTOR [address] [place], [place] [id number] [facility] 03/18/24 FOR RECORDS PERTAINING TO PATIENTS WHO ARE OR HAVE BEEN ENROLLED IN A CHEMICAL DEPENDENCY/SUBSTANCEABUSE PROGRAM, SOME INFORMATION MAY BE OMITTED. This clinical summary was aggregated from multiple sources. Caution should be exercised in using it in the provision of clinical care. This summary normalizes information from multiple sources, and as a consequence, information in this document may materially change the coding, format and clinical context of patient data. In addition, data may be omitted in some cases. CLINICAL DECISIONS SHOULD BE BASED ON THE PRIMARY CLINICAL RECORDS. [facility] [employer] [facility]. provides no warranty or guarantee of the accuracy or completeness of information in this document.
[2025-02-06 18:29] LABS: Color, Urine Straw (Yellow); Glucose, Dipstick Normal (Normal); Ketone-Dipstick Negative (Negative); Leukocyte Esterase-Dipstick 25 /ul (Negative); Nitrite-Dipstick Negative (Negative); Occult Blood-Urine Negative /ul (Negative); Protein-Dipstick Negative (Negative); Specific Gravity, Urine 1.005 (1.002-1.030); Urine Bilirubin Dipstick Negative (Negative)
[2025-02-06 21:13] LABS: Red Blood Cells-Urine 0-5 SEEN /hpf (0-5); Squamous Epithelial Cells - UA 0-5 SEEN /hpf (5-10)
== END | disposition home or self-care (01) ==
PROVIDERS: PCP Family Medicine; Referring Provider Nurse Practitioner Family; Visit Provider Nurse Practitioner Family
DX: R35.0 Frequency of micturition (principal)
CPT/HCPCS: 81001; 87077; 87086; 87088; 87186